=== PATIENT | female | born 1980 | race Caucasian/White ===

== ENCOUNTER → 2016-10-07 | Outpatient (CLI) | payer OTHER | END | disposition home or self-care (01) | LOC: LABWHC1 08:53 | PROVIDERS: ATTEND Obstetrics & Gynecology | DX: O00.10 Tubal pregnancy without intrauterine pregnancy (principal); Z3A.00 Weeks of gestation of pregnancy not specified | CPT/HCPCS: 36415; 84702 ==

== ENCOUNTER 2016-11-25 08:29 | Emergency (ER) | payer OTHER ==
[2016-11-25 08:36] VITALS: TEMP 98.2
--- NOTE | 2016-11-25 09:04 | ED ---
Skin/Abscess/FB HPI - General Chief complaint: Skin/Abscess/Foreign Body Stated complaint: Rash on legs Time Seen by Provider: 11/25/16 08:39 Source: patient, RN notes reviewed Mode of arrival: ambulatory - History of Present Illness Initial comments: 36-year-old male presents emergency Department with chief complaint of rash or lower extremity is. Patient states this started yesterday. Patient states it is painful and states her legs feel tight. Patient states her is red spotting noted to her legs. She states it is not itchy. Patient states that she's felt that she's had a low-grade temp at home though she is afebrile here. She states that she took some Tylenol Motrin yesterday. Patient states she did have 1 episode shortness breath yesterday but this time. Denies any cold symptoms. Patient states she is non-health problems that she knows of no history of autoimmune disorders. Patient states that she's had no new soaps or lotions or detergents. Patient states that she did have an ectopic with surgery 2 months ago. - Related Data Home Medications Medication Instructions Recorded Confirmed Albuterol Inhaler [Ventolin Hfa 2 puff INHALATION RT-Q6H PRN 11/25/16 11/25/16 Inhaler] Ibuprofen [Motrin] 400 mg PO Q6HR PRN 11/25/16 11/25/16 Previous Rx's Medication Instructions Recorded methylPREDNISolone [Medrol Dose 4 mg PO DIRECTED #1 pack 11/25/16 Pack] traMADol HCl [Ultram] 50 mg PO Q6H PRN #20 tab 11/25/16 Allergies Allergy/AdvReac Type Severity Reaction Status Date / Time diphenhydramine HCl Allergy Vomiting Verified 02/20/16 00:12 [From Benadryl] codeine AdvReac Itching Verified 11/25/16 09:10 Review of Systems ROS Statement: Those systems with pertinent positive or pertinent negative responses have been documented in the HPI. ROS Other: All systems not noted in ROS Statement are negative. 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 Absent: tenderness, meningismus, lymphadenopathy Respiratory exam: Present: normal lung sounds bilaterally. Absent: respiratory distress, wheezes, rales, rhonchi, stridor Cardiovascular Exam: Present: regular rate, normal rhythm, normal heart sounds. Absent: systolic murmur, diastolic murmur, rubs, gallop, clicks Extremities exam: Present: other (Lower extremities there are erythematous macular petechial type rash non-blanchable with reported tenderness to the skin with palpation no open lesions or sores there is no warmth to the area) Neurological exam: Present: alert Skin exam: Present: warm, dry Course Vital Signs 11/25/16 08:30 Temperature 98.2 F Pulse Rate 83 Respiratory 18 Rate Blood Pressure 149/80 O2 Sat by Pulse 99 Oximetry Medical Decision Making - Medical Decision Making 36-year-old female presented emergency department for rash her legs. Patient appears to have vasculitis. Patient be given steroids. Patient will follow-up with hadoop application developer or primary care physician. Return parameters were discussed. - Lab Data Result diagrams: 11/25/16 09:20 11/25/16 09:20 Lab Results 11/25/16 11/25/16 11/25/16 Range/Units 09:05 09:20 09:20 WBC 9.8 (3.8-10.6) k/uL RBC 4.72 (3.80-5.40) m/uL Hgb 14.4 (11.4-16.0) gm/dL Hct 42.1 (34.0-46.0) % MCV 89.2 (80.0-100.0) fL MCH 30.5 (25.0-35.0) pg MCHC 34.2 (31.0-37.0) g/dL RDW 12.5 (11.5-15.5) % Plt Count 307 (150-450) k/uL Neutrophils % 63 % Lymphocytes % 27 % Monocytes % 4 % Eosinophils % 5 % Basophils % 0 % Neutrophils # 6.1 (1.3-7.7) k/uL Lymphocytes # 2.6 (1.0-4.8) k/uL Monocytes # 0.4 (0-1.0) k/uL Eosinophils # 0.5 (0-0.7) k/uL Basophils # 0.0 (0-0.2) k/uL ESR 7 (0-20) mm/hr PT (9.0-12.0) sec INR (<1.1) APTT (22.0-30.0) sec Sodium 141 (137-145) mmol/L Potassium 4.0 (3.5-5.1) mmol/L Chloride 108 H (98-107) mmol/L Carbon Dioxide 24 (22-30) mmol/L Anion Gap 9 mmol/L BUN 11 (7-17) mg/dL Creatinine 0.54 (0.52-1.04) mg/dL Est GFR (MDRD) Af Amer >60 (>60 ml/min/1.73 sqM) Est GFR (MDRD) Non-Af >60 (>60 ml/min/1.73 sqM) Glucose 109 H (74-99) mg/dL Calcium 8.9 (8.4-10.2) mg/dL Total Bilirubin 0.4 (0.2-1.3) mg/dL AST 30 (14-36) U/L ALT 42 (9-52) U/L Alkaline Phosphatase 112 (38-126) U/L C-Reactive Protein 28.3 H (<10.0) mg/L Total Protein 6.9 (6.3-8.2) g/dL Albumin 4.0 (3.5-5.0) g/dL Urine Color Colorless Urine Appearance Clear (Clear) Urine pH 6.5 (5.0-8.0) Ur Specific [place] 1.003 (1.001-1.035) Urine Protein Negative (Negative) Urine Glucose (UA) Negative (Negative) Urine Ketones Negative (Negative) Urine Blood Negative (Negative) Urine Nitrite Negative (Negative) Urine Bilirubin Negative (Negative) Urine Urobilinogen <2.0 (<2.0) mg/dL Ur Leukocyte Esterase Negative (Negative) 11/25/16 Range/Units 09:20 WBC (3.8-10.6) k/uL RBC (3.80-5.40) m/uL Hgb (11.4-16.0) gm/dL Hct (34.0-46.0) % MCV (80.0-100.0) fL MCH (25.0-35.0) pg MCHC (31.0-37.0) g/dL RDW (11.5-15.5) % Plt Count (150-450) k/uL Neutrophils % % Lymphocytes % % Monocytes % % Eosinophils % % Basophils % % Neutrophils # (1.3-7.7) k/uL Lymphocytes # (1.0-4.8) k/uL Monocytes # (0-1.0) k/uL Eosinophils # (0-0.7) k/uL Basophils # (0-0.2) k/uL ESR (0-20) mm/hr PT 9.5 (9.0-12.0) sec INR 0.9 (<1.1) APTT 24.6 (22.0-30.0) sec Sodium (137-145) mmol/L Potassium (3.5-5.1) mmol/L Chloride (98-107) mmol/L Carbon Dioxide (22-30) mmol/L Anion Gap mmol/L BUN (7-17) mg/dL Creatinine (0.52-1.04) mg/dL Est GFR (MDRD) Af Amer (>60 ml/min/1.73 sqM) Est GFR (MDRD) Non-Af (>60 ml/min/1.73 sqM) Glucose (74-99) mg/dL Calcium (8.4-10.2) mg/dL Total Bilirubin (0.2-1.3) mg/dL AST (14-36) U/L ALT (9-52) U/L Alkaline Phosphatase (38-126) U/L C-Reactive Protein (<10.0) mg/L Total Protein (6.3-8.2) g/dL Albumin (3.5-5.0) g/dL Urine Color Urine Appearance (Clear) Urine pH (5.0-8.0) Ur Specific [place] (1.001-1.035) Urine Protein (Negative) Urine Glucose (UA) (Negative) Urine Ketones (Negative) Urine Blood (Negative) Urine Nitrite (Negative) Urine Bilirubin (Negative) Urine Urobilinogen (<2.0) mg/dL Ur Leukocyte Esterase (Negative) Disposition Clinical Impression: Vasculitis Disposition: HOME SELF-CARE Condition: Stable Instructions: Acute Rash (ED) Additional Instructions: Please return to the Emergency Department if symptoms worsen or any other concerns. Prescriptions: methylPREDNISolone [Medrol Dose Pack] 4 mg PO DIRECTED #1 pack traMADol HCl [Ultram] 50 mg PO Q6H PRN #20 tab PRN Reason: Pain Referrals: None,Stated [Primary Care Provider] - 1-2 days Shey Lizama MD [STAFF PHYSICIAN] - 1-2 days Time of Disposition: 10:50
[2016-11-25 09:26] LABS: Appearance,Urine Clear (Clear); Bilirubin,Urine Negative (Negative); Glucose,Urine (UA) Negative (Negative); Ketones,Urine Negative (Negative); Leukocyte Esterase,Urine Negative (Negative); Nitrite,Urine Negative (Negative); PH, Urine 6.5 (5.0-8.0); Protein,Urine Negative (Negative); Specific Gravity,Urine 1.003 (1.001-1.035); UA Billing (MACRO vs. MICRO) CHEM; Urobilinogen,Urine <2.0 mg/dL (<2.0)
[2016-11-25 09:33] LABS: Basophils % (A) 0 %; CH 30.5; CHCM 34.4; Eosinophils # (A) 0.5 k/uL (0-0.7); Eosinophils % (A) 5 %; HCT 42.1 % (34.0-46.0); HDW 2.76; HGB 14.4 gm/dL (11.4-16.0); Luc # (Auto) 0.16; Luc % (Auto) 2; Lymphocytes # (A) 2.6 k/uL (1.0-4.8); Lymphocytes % (A) 27 %; MCH 30.5 pg (25.0-35.0); MCHC 34.2 g/dL (31.0-37.0); MCV 89.2 fL (80.0-100.0); Mean Platelet Volume 6.5; Monocytes # (A) 0.4 k/uL (0-1.0); Monocytes % (A) 4 %; Neutrophils # (A) 6.1 k/uL (1.3-7.7); Neutrophils % (A) 63 %; RBC 4.72 m/uL (3.80-5.40); RDW 12.5 % (11.5-15.5); WBC 9.8 k/uL (3.8-10.6); WBC (Perox) 10.07
[2016-11-25 09:41] LABS: ALT 42 U/L (9-52); AST 30 U/L (14-36); Alkaline Phosphatase 112 U/L (38-126); Anion Gap 9 mmol/L; Blood Urea Nitrogen 11 mg/dL (7-17); Calcium 8.9 mg/dL (8.4-10.2); Carbon Dioxide 24 mmol/L (22-30); Chloride 108 mmol/L (98-107); Glucose 109 mg/dL (74-99); Non-African American GFR(MDRD) >60 (>60 ml/min/1.73 sqM); Sodium 141 mmol/L (137-145); Total Bilirubin 0.4 mg/dL (0.2-1.3); Total Protein 6.9 g/dL (6.3-8.2)
[2016-11-25 09:45] LABS: INR 0.9 (<1.1); Partial Thromboplastin Time 24.6 sec (22.0-30.0); Prothrombin Time 9.5 sec (9.0-12.0)
[2016-11-25 09:55] LABS: C Reactive Protein 28.3 mg/L (<10.0)
[2016-11-25 10:18] LABS: Erythrocyte Sedimentation Rate 7 mm/hr (0-20)
[2016-11-25] MEDS ORDERED: HYDROcodone/APAP 5-325MG 1 EACH TAB PO STA (10:53)
[2016-11-25 11:24] VITALS: BP 156/70; PULSE 70; RESP 16
== END 2016-11-25 11:24 | disposition home or self-care (01) ==
LOC: EC 08:29
DX: L95.9 Vasculitis limited to the skin, unspecified (principal); Z88.5 Allergy status to narcotic agent; Z88.8 Allergy status to other drugs, medicaments and biological substances
CPT/HCPCS: 36415; 80053; 81003; 85025; 85610; 85652; 85730; 86140; 99283

== ENCOUNTER 2017-01-01 11:08 | Emergency (ER) | payer OTHER ==
[2017-01-01] MEDS ORDERED: IPRATROPIUM-ALBUTEROL 3 ML NEB INHALATION STA (12:59)
--- NOTE | 2017-01-01 13:02 | ED ---
General Adult HPI - General Chief complaint: Recheck/Abnormal Lab/Rx Stated complaint: body swelling Time Seen by Provider: 01/01/17 12:53 Source: patient, RN notes reviewed Mode of arrival: ambulatory Limitations: no limitations - History of Present Illness Initial comments: 36-year-old female presents emergency room for evaluation. Patient states she was diagnosed with vasculitis about a month ago. Patient states that she had a rash on bilateral legs with pain. Patient states over the past 4 days and having pain all over. Patient also states that having on and off chest pain shortness of breath. Patient does admit having history of asthma. Patient states the chest pain comes in waves. Patient denies abdominal pain. Patient denies nausea or vomiting. Patient denies taking any medications. Patient states she's had on-and-off fevers and chills throughout the past week. Patient states last dose of ibuprofen was at 2:00 in the morning. Patient denies headache or dizziness. Patient denies paresthesias. Patient denies neck pain or back pain. - Related Data Home Medications Medication Instructions Recorded Confirmed Albuterol Inhaler [Ventolin Hfa 2 puff INHALATION RT-Q6H PRN 11/25/16 01/01/17 Inhaler] Ibuprofen [Motrin] 800 mg PO Q6HR PRN 11/25/16 01/01/17 Previous Rx's Medication Instructions Recorded predniSONE 40 mg PO DAILY #5 tab 01/01/17 Allergies Allergy/AdvReac Type Severity Reaction Status Date / Time diphenhydramine HCl Allergy Vomiting Verified 01/01/17 12:04 [From Benadryl] codeine AdvReac Itching Verified 01/01/17 12:04 Review of Systems ROS Statement: Those systems with pertinent positive or pertinent negative responses have been documented in the HPI. ROS Other: All systems not noted in ROS Statement are negative. 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 Limitations: no limitations General appearance: alert, in no apparent distress Head exam: Present: atraumatic, normocephalic, normal inspection Eye exam: Present: normal appearance ENT exam: Present: normal exam Neck exam: Present: normal inspection Respiratory exam: Present: normal lung sounds bilaterally. Absent: respiratory distress Cardiovascular Exam: Present: regular rate, normal rhythm, normal heart sounds GI/Abdominal exam: Present: soft, normal bowel sounds. Absent: distended, tenderness, guarding, rebound, rigid Extremities exam: Present: normal inspection Back exam: Present: normal inspection Neurological exam: Present: alert, oriented X3, CN II-XII intact, normal gait Psychiatric exam: Present: normal affect, normal mood Skin exam: Present: warm, dry, intact, normal color. Absent: rash Course Vital Signs 01/01/17 01/01/17 01/01/17 11:09 13:24 13:37 Temperature 98.2 F Pulse Rate 87 75 84 Respiratory 20 Rate Blood Pressure 160/78 O2 Sat by Pulse 98 Oximetry 01/01/17 01/01/17 14:29 15:32 Temperature 97.5 F L Pulse Rate 94 79 Respiratory 18 16 Rate Blood Pressure 145/79 144/73 O2 Sat by Pulse 98 98 Oximetry EKG Findings - EKG Comments: EKG Findings:: Normal sinus rhythm, ventricular rate 72 bpm, WV interval 152 ms , QRS duration 96 ms, QT/QTc 428/468 ms Medical Decision Making - Medical Decision Making Patient is a 36-year-old female since emergency room for evaluation of chest pain and all over body aches. Labs show normal concerning findings. Cardiac enzymes showed no significant findings. Chest x-ray negative for any acute findings. Patient will be placed on prednisone for possible asthma exacerbation. Advised patient to follow-up for further evaluation with her primary care provider. Patient states she understands everything that was discussed with her. Return parameters discussed. Case discussed with Dr. Moss. - Lab Data Result diagrams: 01/01/17 13:07 01/01/17 13:07 Lab Results 01/01/17 01/01/17 01/01/17 Range/Units 13:07 13:07 13:07 WBC 13.3 H (3.8-10.6) k/uL RBC 4.51 (3.80-5.40) m/uL Hgb 14.0 (11.4-16.0) gm/dL Hct 40.2 (34.0-46.0) % MCV 89.2 (80.0-100.0) fL MCH 31.0 (25.0-35.0) pg MCHC 34.7 (31.0-37.0) g/dL RDW 12.8 (11.5-15.5) % Plt Count 294 (150-450) k/uL Neutrophils % 65 % Lymphocytes % 25 % Monocytes % 6 % Eosinophils % 2 % Basophils % 0 % Neutrophils # 8.7 H (1.3-7.7) k/uL Lymphocytes # 3.3 (1.0-4.8) k/uL Monocytes # 0.7 (0-1.0) k/uL Eosinophils # 0.3 (0-0.7) k/uL Basophils # 0.0 (0-0.2) k/uL PT (9.0-12.0) sec INR (<1.1) APTT (22.0-30.0) sec Sodium 144 (137-145) mmol/L Potassium 3.9 (3.5-5.1) mmol/L Chloride 108 H (98-107) mmol/L Carbon Dioxide 25 (22-30) mmol/L Anion Gap 11 mmol/L BUN 7 (7-17) mg/dL Creatinine 0.50 L (0.52-1.04) mg/dL Est GFR (MDRD) Af Amer >60 (>60 ml/min/1.73 sqM) Est GFR (MDRD) Non-Af >60 (>60 ml/min/1.73 sqM) Glucose 98 (74-99) mg/dL Calcium 9.1 (8.4-10.2) mg/dL Magnesium 2.2 (1.6-2.3) mg/dL Total Bilirubin 0.3 (0.2-1.3) mg/dL AST 19 (14-36) U/L ALT 33 (9-52) U/L Alkaline Phosphatase 93 (38-126) U/L Total Creatine Kinase 57 (30-135) U/L CK-MB (CK-2) 0.9 (0.0-2.4) ng/mL CK-MB (CK-2) Rel Index 1.6 Troponin I <0.012 (0.000-0.034) ng/mL Total Protein 7.2 (6.3-8.2) g/dL Albumin 4.4 (3.5-5.0) g/dL 01/01/17 Range/Units 13:07 WBC (3.8-10.6) k/uL RBC (3.80-5.40) m/uL Hgb (11.4-16.0) gm/dL Hct (34.0-46.0) % MCV (80.0-100.0) fL MCH (25.0-35.0) pg MCHC (31.0-37.0) g/dL RDW (11.5-15.5) % Plt Count (150-450) k/uL Neutrophils % % Lymphocytes % % Monocytes % % Eosinophils % % Basophils % % Neutrophils # (1.3-7.7) k/uL Lymphocytes # (1.0-4.8) k/uL Monocytes # (0-1.0) k/uL Eosinophils # (0-0.7) k/uL Basophils # (0-0.2) k/uL PT 10.2 (9.0-12.0) sec INR 1.0 (<1.1) APTT 25.9 (22.0-30.0) sec Sodium (137-145) mmol/L Potassium (3.5-5.1) mmol/L Chloride (98-107) mmol/L Carbon Dioxide (22-30) mmol/L Anion Gap mmol/L BUN (7-17) mg/dL Creatinine (0.52-1.04) mg/dL Est GFR (MDRD) Af Amer (>60 ml/min/1.73 sqM) Est GFR (MDRD) Non-Af (>60 ml/min/1.73 sqM) Glucose (74-99) mg/dL Calcium (8.4-10.2) mg/dL Magnesium (1.6-2.3) mg/dL Total Bilirubin (0.2-1.3) mg/dL AST (14-36) U/L ALT (9-52) U/L Alkaline Phosphatase (38-126) U/L Total Creatine Kinase (30-135) U/L CK-MB (CK-2) (0.0-2.4) ng/mL CK-MB (CK-2) Rel Index Troponin I (0.000-0.034) ng/mL Total Protein (6.3-8.2) g/dL Albumin (3.5-5.0) g/dL Disposition Clinical Impression: Asthma exacerbation Disposition: HOME SELF-CARE Condition: Good Instructions: Asthma (ED) Additional Instructions: Take medications as directed. Take Tylenol or ibuprofen as needed for pain. Please follow-up with primary care provider for further evaluation. If any new symptom arises or symptoms worsen, return to ER as soon as possible. Prescriptions: predniSONE 40 mg PO DAILY #5 tab Referrals: None,Stated [Primary Care Provider] - 1-2 days Time of Disposition: 15:27
[2017-01-01 13:25] LABS: Basophils % (A) 0 %; CH 30.1; CHCM 33.9; Eosinophils # (A) 0.3 k/uL (0-0.7); Eosinophils % (A) 2 %; HCT 40.2 % (34.0-46.0); HDW 2.57; Luc # (Auto) 0.25; Luc % (Auto) 2; Lymphocytes # (A) 3.3 k/uL (1.0-4.8); Lymphocytes % (A) 25 %; MCHC 34.7 g/dL (31.0-37.0); MCV 89.2 fL (80.0-100.0); Mean Platelet Volume 6.7; Monocytes # (A) 0.7 k/uL (0-1.0); Monocytes % (A) 6 %; Neutrophils # (A) 8.7 k/uL (1.3-7.7); Neutrophils % (A) 65 %; RBC 4.51 m/uL (3.80-5.40); RDW 12.8 % (11.5-15.5); WBC 13.3 k/uL (3.8-10.6); WBC (Perox) 12.99
[2017-01-01 13:30] LABS: Partial Thromboplastin Time 25.9 sec (22.0-30.0); Prothrombin Time 10.2 sec (9.0-12.0)
[2017-01-01 13:31] LABS: ALT 33 U/L (9-52); AST 19 U/L (14-36); Alkaline Phosphatase 93 U/L (38-126); Anion Gap 11 mmol/L; Blood Urea Nitrogen 7 mg/dL (7-17); Calcium 9.1 mg/dL (8.4-10.2); Carbon Dioxide 25 mmol/L (22-30); Chloride 108 mmol/L (98-107); Glucose 98 mg/dL (74-99); Magnesium 2.2 mg/dL (1.6-2.3); Non-African American GFR(MDRD) >60 (>60 ml/min/1.73 sqM); Potassium 3.9 mmol/L (3.5-5.1); Sodium 144 mmol/L (137-145); Total Bilirubin 0.3 mg/dL (0.2-1.3); Total Protein 7.2 g/dL (6.3-8.2)
[2017-01-01 13:40] LABS: Creatine Kinase 57 U/L (30-135)
[2017-01-01 13:53] LABS: Creatine Kinase MB 0.9 ng/mL (0.0-2.4); Troponin I <0.012 ng/mL (0.000-0.034)
[2017-01-01] MEDS ORDERED: IBUPROFEN 600 MG TAB PO STA (14:15)
--- NOTE | 2017-01-01 14:28 | XR ---
EXAMINATION TYPE: XR chest 2V DATE OF EXAM: 01/01/2017 2:24 PM COMPARISON: 08/15/2014 TECHNIQUE: PA and lateral views submitted. HISTORY: Chest pain FINDINGS: The lungs are clear and there is no pneumothorax, pleural effusion, or focal pneumonia. The heart i s prominent. No overt failure or pneumothorax. No pleural effusion. Hypertrophic change of the spine. IMPRESSION: 1. No acute process.
[2017-01-01 15:32] VITALS: BP 144/73; PULSE 79; RESP 16; TEMP 97.5
== END 2017-01-01 15:46 | disposition home or self-care (01) ==
LOC: EC 11:08
DX: J45.901 Unspecified asthma with (acute) exacerbation (principal); J42 Unspecified chronic bronchitis; R07.9 Chest pain, unspecified; Z88.5 Allergy status to narcotic agent; Z88.8 Allergy status to other drugs, medicaments and biological substances
CPT/HCPCS: 36415; 71020; 80053; 82550; 82553; 83735; 84484; 85025; 85610; 85730; 93005; 94640; 99284

== ENCOUNTER 2017-05-23 09:25 | Inpatient (IN) | payer OTHER ==
[2017-05-23] MEDS ORDERED: ONDANSETRON 4 MG/2 ML VIAL IVP STA (09:54)
[2017-05-23] MEDS ORDERED: SODIUM CHLORIDE 0.9% 1,000 ML IV STA (09:54)
[2017-05-23] MEDS ORDERED: HYDROmorphone 1 MG/ML 1 ML SYRINGE IVP STA ×2 (10:02→12:09)
--- NOTE | 2017-05-23 10:27 | ED ---
General Adult HPI <Narciso Lawson - Last Filed: 05/23/17 12:40> - General Source: patient, RN notes reviewed Mode of arrival: ambulatory Limitations: no limitations <Blas Geiger - Last Filed: 05/23/17 12:49> - General Chief complaint: Abdominal Pain Stated complaint: POSS KIDNEY INFECTION, FEMALE Time Seen by Provider: 05/23/17 09:43 - History of Present Illness Initial comments: Patient 37-year-old female who presents emergency room today with a chief complaint of right-sided flank pain that began yesterday but increased this morning approximately 5 AM. Patient describes a sharp type pain started in the right side radiating around to the right front. Patient states about possible UTI. Patient does admit to symptoms of nausea vomiting of service morning. Currently rates her pain a 03/19. Does admit that she took ibuprofen this morning. Patient denies any recent fever, chills, shortness of breath, chest pain, numbness or tingling, dysuria or hematuria, constipation or diarrhea, headaches or visual changes, or any other complaints. (Blas Geiger) - Related Data Home Medications Medication Instructions Recorded Confirmed Ibuprofen [Motrin] 400 mg PO Q6HR PRN 05/23/17 05/23/17 Allergies Allergy/AdvReac Type Severity Reaction Status Date / Time codeine AdvReac Itching Verified 05/23/17 12:45 diphenhydramine HCl AdvReac Hallucinati Verified 05/23/17 12:45 [From Benadryl] ons Review of Systems ROS Other: All systems not noted in ROS Statement are negative. <Narciso Lawson - Last Filed: 05/23/17 12:40> ROS Other: All systems not noted in ROS Statement are negative. <Blas Geiger - Last Filed: 05/23/17 12:49> ROS Statement: Those systems with pertinent positive or pertinent negative responses have been documented in the HPI. 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, chronic bronchitis, vasculitis History of Any Multi-Drug Resistant Organisms: None Reported Past Surgical History: Cholecystectomy, Ear Surgery, Tubal Ligation Additional Past Surgical History / Comment(s): carpel tunnel, ectopic removal 09/28/16 Past Psychological History: Anxiety, Depression Smoking Status: Never smoker Past Alcohol Use History: Rare Past Drug Use History: None Reported <Blas Geiger - Last Filed: 05/23/17 12:49> General Exam <RennyNarciso - Last Filed: 05/23/17 12:40> Limitations: no limitations <Blas Geiger - Last Filed: 05/23/17 12:49> - General Exam Comments Initial Comments: General: The patient is awake and alert, in no distress, and does not appear acutely ill. Eye: Pupils are equal, round and reactive to light, extra-ocular movements are intact. No nystagmus. There is normal conjunctiva bilaterally. No signs of icterus. Ears, nose, mouth and throat: There are moist mucous membranes and no oral lesions. Neck: The neck is supple, there is no tenderness or JVD. Cardiovascular: There is a regular rate and rhythm. No murmur, rub or gallop is appreciated. Respiratory: Lungs are clear to auscultation, respirations are non-labored, breath sounds are equal. No wheezes, stridor, rales, or rhonchi. Gastrointestinal: Normal appearance. Normal bowel sounds. Abdomen soft on palpation or patient does have mild tenderness right CVA and mild tenderness in the right flank. No rebound tenderness. No guarding. Musculoskeletal: Normal ROM, no tenderness. Strength 5/5. Sensation intact. Pulses equal bilaterally 2+. Neurological: A&O x 3. CN II-XII intact, There are no obvious motor or sensory deficits. Coordination appears grossly intact. Speech is normal. Skin: Skin is warm and dry and no rashes or lesions are noted. Psychiatric: Cooperative, appropriate mood & affect, normal judgment. (Blas Geiger) Medical Decision Making - Lab Data Result diagrams: 05/23/17 10:15 05/23/17 11:31 <Narciso Lawson - Last Filed: 05/23/17 12:40> - Lab Data Result diagrams: 05/23/17 10:15 05/23/17 11:31 <Blas Geiger - Last Filed: 05/23/17 12:49> - Medical Decision Making Medical decision making; I evaluated the patient at bedside. The patient reports a day or so ago she started having discomfort to her right lower back. This morning at 5 AM she developed nausea vomiting fever. Temperature is 101 at home. The patient in the emergency room. Lab tests here show urine with over 180 whites and reds, leuk esterase positive, CBC and clumps. White count elevated at 15,000. BUN/creatinine within normal limits. The patient received 2 g of Rocephin. I discussed the case with Dr. Mendiola, on-call urologist. He wants the patient admitted to medicine he'll consult patient has possible 3 mm stone distal right ureter with some stranding locally. I read the CAT scan report to the urologist. I also discussed the case with on-call hospitalist Dr. Rivera. Patient be admitted to his service. Dr. Lawson (Narciso Lawson) - Lab Data Lab Results 05/23/17 05/23/17 05/23/17 Range/Units 10:15 10:15 10:15 WBC 15.6 H (3.8-10.6) k/uL RBC 4.49 (3.80-5.40) m/uL Hgb 13.7 (11.4-16.0) gm/dL Hct 41.4 (34.0-46.0) % MCV 92.2 (80.0-100.0) fL MCH 30.6 (25.0-35.0) pg MCHC 33.2 (31.0-37.0) g/dL RDW 13.5 (11.5-15.5) % Plt Count 283 (150-450) k/uL Neutrophils % 75 % Lymphocytes % 16 % Monocytes % 5 % Eosinophils % 2 % Basophils % 0 % Neutrophils # 11.7 H (1.3-7.7) k/uL Lymphocytes # 2.5 (1.0-4.8) k/uL Monocytes # 0.8 (0-1.0) k/uL Eosinophils # 0.4 (0-0.7) k/uL Basophils # 0.0 (0-0.2) k/uL Sodium (137-145) mmol/L Potassium (3.5-5.1) mmol/L Chloride (98-107) mmol/L Carbon Dioxide (22-30) mmol/L Anion Gap mmol/L BUN (7-17) mg/dL Creatinine (0.52-1.04) mg/dL Est GFR (MDRD) Af Amer (>60 ml/min/1.73 sqM) Est GFR (MDRD) Non-Af (>60 ml/min/1.73 sqM) Glucose (74-99) mg/dL Calcium (8.4-10.2) mg/dL Total Bilirubin (0.2-1.3) mg/dL AST (14-36) U/L ALT (9-52) U/L Alkaline Phosphatase (38-126) U/L Total Protein (6.3-8.2) g/dL Albumin (3.5-5.0) g/dL Amylase (30-110) U/L Lipase (23-300) U/L Urine Color Yellow Urine Appearance Cloudy H (Clear) Urine pH 7.5 (5.0-8.0) Ur Specific [place] 1.014 (1.001-1.035) Urine Protein 2+ H (Negative) Urine Glucose (UA) Negative (Negative) Urine Ketones Negative (Negative) Urine Blood Large H (Negative) Urine Nitrite Negative (Negative) Urine Bilirubin Negative (Negative) Urine Urobilinogen <2.0 (<2.0) mg/dL Ur Leukocyte Esterase Large H (Negative) Urine RBC >182 H (0-5) /hpf Urine WBC >182 H (0-5) /hpf Urine WBC Clumps Few H (None) /hpf Ur Squamous Epith Cells <1 (0-4) /hpf Urine Bacteria Rare H (None) /hpf Urine Yeast (Budding) Few H (None) /hpf Urine HCG, Qual Not Detected (Not Detectd) 05/23/17 Range/Units 11:31 WBC (3.8-10.6) k/uL RBC (3.80-5.40) m/uL Hgb (11.4-16.0) gm/dL Hct (34.0-46.0) % MCV (80.0-100.0) fL MCH (25.0-35.0) pg MCHC (31.0-37.0) g/dL RDW (11.5-15.5) % Plt Count (150-450) k/uL Neutrophils % % Lymphocytes % % Monocytes % % Eosinophils % % Basophils % % Neutrophils # (1.3-7.7) k/uL Lymphocytes # (1.0-4.8) k/uL Monocytes # (0-1.0) k/uL Eosinophils # (0-0.7) k/uL Basophils # (0-0.2) k/uL Sodium 140 (137-145) mmol/L Potassium 4.1 (3.5-5.1) mmol/L Chloride 107 (98-107) mmol/L Carbon Dioxide 25 (22-30) mmol/L Anion Gap 8 mmol/L BUN 7 (7-17) mg/dL Creatinine 0.52 (0.52-1.04) mg/dL Est GFR (MDRD) Af Amer >60 (>60 ml/min/1.73 sqM) Est GFR (MDRD) Non-Af >60 (>60 ml/min/1.73 sqM) Glucose 91 (74-99) mg/dL Calcium 8.6 (8.4-10.2) mg/dL Total Bilirubin 0.3 (0.2-1.3) mg/dL AST 60 H (14-36) U/L ALT 79 H (9-52) U/L Alkaline Phosphatase 93 (38-126) U/L Total Protein 6.4 (6.3-8.2) g/dL Albumin 3.7 (3.5-5.0) g/dL Amylase <30 L (30-110) U/L Lipase 115 (23-300) U/L Urine Color Urine Appearance (Clear) Urine pH (5.0-8.0) Ur Specific [place] (1.001-1.035) Urine Protein (Negative) Urine Glucose (UA) (Negative) Urine Ketones (Negative) Urine Blood (Negative) Urine Nitrite (Negative) Urine Bilirubin (Negative) Urine Urobilinogen (<2.0) mg/dL Ur Leukocyte Esterase (Negative) Urine RBC (0-5) /hpf Urine WBC (0-5) /hpf Urine WBC Clumps (None) /hpf Ur Squamous Epith Cells (0-4) /hpf Urine Bacteria (None) /hpf Urine Yeast (Budding) (None) /hpf Urine HCG, Qual (Not Detectd) Disposition <Narciso Lawson - Last Filed: 05/23/17 12:40> Time of Disposition: 12:49 <Blas Geiger - Last Filed: 05/23/17 12:49> Clinical Impression: Kidney stone, Pyelonephritis Disposition: ADMITTED IP TO THIS [facility] Condition: Stable Referrals: None,Stated [Primary Care Provider] - 1-2 days
[2017-05-23 10:51] LABS: Basophils % (A) 0 %; CH 31.7; CHCM 34.6; Eosinophils # (A) 0.4 k/uL (0-0.7); Eosinophils % (A) 2 %; HCT 41.4 % (34.0-46.0); HDW 2.63; HGB 13.7 gm/dL (11.4-16.0); Luc # (Auto) 0.19; Luc % (Auto) 1; Lymphocytes # (A) 2.5 k/uL (1.0-4.8); Lymphocytes % (A) 16 %; MCH 30.6 pg (25.0-35.0); MCHC 33.2 g/dL (31.0-37.0); MCV 92.2 fL (80.0-100.0); Mean Platelet Volume 7.4; Monocytes # (A) 0.8 k/uL (0-1.0); Monocytes % (A) 5 %; Neutrophils # (A) 11.7 k/uL (1.3-7.7); Neutrophils % (A) 75 %; RBC 4.49 m/uL (3.80-5.40); RDW 13.5 % (11.5-15.5); WBC 15.6 k/uL (3.8-10.6)
[2017-05-23 10:55] LABS: Appearance,Urine Cloudy (Clear); Bacteria,Urine Rare /hpf; Bilirubin,Urine Negative (Negative); Glucose,Urine (UA) Negative (Negative); Ketones,Urine Negative (Negative); Leukocyte Esterase,Urine Large (Negative); Nitrite,Urine Negative (Negative); PH, Urine 7.5 (5.0-8.0); Particle Count 2074; Protein,Urine 2+ (Negative); RBC,Urine >182 /hpf (0-5); Specific Gravity,Urine 1.014 (1.001-1.035); Squamous Epithelial Cell,Urine <1 /hpf (0-4); UA Billing (MACRO vs. MICRO) MICRO; Urobilinogen,Urine <2.0 mg/dL (<2.0); WBC,Urine >182 /hpf (0-5)
[2017-05-23] MEDS ORDERED: cefTRIAXone 2,000 MG in SODIUM CHLORIDE 0.9% 100 ML IVPB STA (11:05)
--- NOTE | 2017-05-23 11:40 | CT ---
EXAMINATION TYPE: CT abdomen pelvis wo con DATE OF EXAM: 05/23/2017 COMPARISON: NONE HISTORY: Right sided back pain CT DLP: 995.6 mGycm Automated exposure control for dose reduction was used. FINDINGS: Visualized portions of the lungs are clear. There is no pleural or pericardial fluid heart size is upper limits of normal. There is a small hiatal hernia. Within the abdomen, the gallbladder is been removed. The liver is prominent measuring 21 cm. 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 The spleen is normal. Both adrenal glands are normal. Both kidneys appear morphologically normal. There is no evidence of hydronephrosis. There is mild stranding along the right ureter which is mildly enlarged. There is a 3 mm calcificatio n adjacent to the cervix on the right. I'm unable to exclude a distal right ureteric calculus. Limited views of the pancreas are unremarkable. There is no significant retroperitoneal, iliac or inguinal adenopathy. The bladder is unremarkable. There is a 6 cm left ovarian mass, likely representing a cyst. There is a 2 cm left sided fibroid. There is no significant diverticular change and there is no radiographic evidence of diverticulitis. The appendix is normal. No free fluid and no free air is seen. There is a small umbilical hernia containing fat only with a 1.4 cm mouth. No osseous lesion is seen. IMPRESSION: 1. I CANNOT EXCLUDE A 3 MM DISTAL RIGHT URETERIC CALCULUS. 2. HEPATOMEGALY. 3. PROBABLE LEFT OVARIAN CYST. THIS COULD BE CONFIRMED WITH ULTRASOUND. 4. FIBROID UTERUS. 5. NORMAL APPENDIX. 6. SMALL HIATAL HERNIA. 7. SMALL UMBILICAL HERNIA CONTAINING FAT ONLY.
[2017-05-23] MEDS ORDERED: KETOROLAC 30 MG/ML 1 ML VIAL IVP STA (12:09)
[2017-05-23 12:17] LABS: ALT 79 U/L (9-52); AST 60 U/L (14-36); Alkaline Phosphatase 93 U/L (38-126); Amylase <30 U/L (30-110); Anion Gap 8 mmol/L; Blood Urea Nitrogen 7 mg/dL (7-17); Calcium 8.6 mg/dL (8.4-10.2); Carbon Dioxide 25 mmol/L (22-30); Chloride 107 mmol/L (98-107); Glucose 91 mg/dL (74-99); Non-African American GFR(MDRD) >60 (>60 ml/min/1.73 sqM); Potassium 4.1 mmol/L (3.5-5.1); Sodium 140 mmol/L (137-145); Total Bilirubin 0.3 mg/dL (0.2-1.3); Total Protein 6.4 g/dL (6.3-8.2)
[2017-05-23] MEDS ORDERED: NALOXONE 0.4 MG/ML 1 ML VIAL IV PRN ×2 (12:49→13:57)
[2017-05-23] MEDS ORDERED: ACETAMINOPHEN TAB 325 MG TAB PO PRN (13:57)
--- NOTE | 2017-05-23 14:08 | P.HPIM ---
History of Present Illness H&P Date: 05/23/17 Chief Complaint: Right flank pain 37-year-old female who presents emergency room today with a chief complaint of right-sided flank pain that began yesterday but increased in severity this morning approximately 5 AM. Patient describes a sharp achy type 10/10 pain started in the right side radiating around to the right groin area. Patient does admit to several episodes symptoms of nausea vomiting of service morning. Currently rates her pain a 8/10. Does admit that she took ibuprofen this morning. Patient reports recent fever temperature 102.4 and chills and urinary symptoms of incomplete voiding dysuria or increased frequency that began approximately 2 days ago, she reports increasing her intake of cranberry juice at this time as she ought she was having another UTI. She reports a history of UTIs last occurring over a year ago, she denies shortness of breath, chest pain, numbness or tingling, constipation or diarrhea, headaches or visual changes, or any other complaints Review of Systems Constitutional: Patient reports no fever, no chills, no weight changes, no change in appetite Eyes: Patient reports no double vision, no visual changes ENT: Patient reports no rhinorrhea, no post nasal drip, no sore throat Cardiovascular: Patient reports no chest, no edema, no palpitations, no syncope , no orthopnea, no paroxysmal nocturnal dyspnea. Respiratory: Patient reports no dyspnea, no cough, no wheeze Gastrointestinal: Patient reports no nausea, no vomiting, no constipation, no diarrhea Genitourinary: Patient reports no dysuria, no urinary frequency, no hematuria. Musculoskeletal: Patient reports no unusual joint pain, no joint swelling or weakness. Patient reports no muscular pain. Psychiatric: Patient reports no changes in mood, no sleeping problems. Patient reports no changes in memory. Endocrine: Patient reports no thirst, no polyuria, no cold intolerance, no heat intolerance. Neurological: Patient reports no unusual paresthesias, no seizures, no paresis , no paralysis, no facila droop, no headache. Heme/Lymphatic: Patient reports no easy bruising, no bleeding tendency, no lymphadenopathy. Allergic/ Immunologic: Patient reports no recent allergic reactions or immunologic history. Skin: Patient reports no rashes or unusual lesions. 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, chronic bronchitis, vasculitis History of Any Multi-Drug Resistant Organisms: None Reported Past Surgical History: Cholecystectomy, Ear Surgery, Tubal Ligation Additional Past Surgical History / Comment(s): carpel tunnel, ectopic removal 09/28/16 Past Psychological History: Anxiety, Depression Smoking Status: Never smoker Past Alcohol Use History: Rare Past Drug Use History: None Reported Medications and Allergies Home Medications Medication Instructions Recorded Confirmed Type Ibuprofen [Motrin] 400 mg PO Q6HR PRN 05/23/17 05/23/17 History Allergies Allergy/AdvReac Type Severity Reaction Status Date / Time codeine AdvReac Itching Verified 05/23/17 12:45 diphenhydramine HCl AdvReac Hallucinati Verified 05/23/17 12:45 [From Benadryl] ons Physical Exam Vitals: Vital Signs Temp Pulse Resp BP Pulse Ox 05/23/17 12:22 81 16 155/91 98 05/23/17 09:33 98.7 F 88 20 139/75 98 Intake and Output 05/22/17 05/23/17 05/23/17 22:59 06:59 14:59 Other: Weight 86.183 kg Patient Weight 05/24/17 06:59 Weight 86.183 kg Constitutional: No acute distress, conversant, pleasant Eyes: Anicteric sclerae, moist conjunctiva, no lid-lag, PERRLA ENMT: NC/AT,Oropharynx clear, no erythema, exudates Neck:Supple, FROM, no masses, or JVD, No carotid bruits; No thyromegaly Lungs: Clear to auscultation, Clear to percussion, Normal respiratory effort, no accessory muscle use Cardiovascular: Heart regular in rate and rhythm, No murmurs, gallops, or rubs no peripheral edema Abdominal: Soft Nontender, nom distended, no guarding, no rebound or rigidity, Normoactive bowel sounds No hepatomegaly, No splenomegaly, No palpable mass No abdominal wall hernia noted Skin: Normal temperature, tone, texture, turgor, No induration No subcutaneous nodules, No rash, lesions, No ulcers Extremities:No digital cyanosis No clubbing, Pedal pulses intact and symmetrical Radial pulses intact and symmetrical Normal gait and station, No calf tenderness Psychiatric: Alert and oriented to person, place and time, Appropriate affect Intact judgement Neuro: Muscles Strength 5/5 in all 4 extremities, Sensation to light touch grossly present throughout, Cranial nerves II-XII grossly intact. No focal sensory deficits Results CBC & Chem 7: 05/23/17 10:15 05/23/17 11:31 Labs: Abnormal Lab Results - Last 24 Hours (Table) 05/23/17 05/23/17 05/23/17 Range/Units 10:15 10:15 11:31 WBC 15.6 H (3.8-10.6) k/uL Neutrophils # 11.7 H (1.3-7.7) k/uL AST 60 H (14-36) U/L ALT 79 H (9-52) U/L Amylase <30 L (30-110) U/L Urine Appearance Cloudy H (Clear) Urine Protein 2+ H (Negative) Urine Blood Large H (Negative) Ur Leukocyte Esterase Large H (Negative) Urine RBC >182 H (0-5) /hpf Urine WBC >182 H (0-5) /hpf Urine WBC Clumps Few H (None) /hpf Urine Bacteria Rare H (None) /hpf Urine Yeast (Budding) Few H (None) /hpf Assessment and Plan (1) Sepsis Status: Acute (2) Pyelonephritis Status: Acute (3) Kidney stone Status: Acute (4) Intractable nausea and vomiting Status: Acute Plan: The patient is a 37-year-old female that is admitted to the medical floor anticipated greater than 2 midnight stay with sepsis secondary to acute pyelonephritis with intractable nausea and vomiting we'll send for blood urine cultures, she started on empiric IV antibiotics with Rocephin, patient has CT evidence of a nonobstructive kidney stone. We'll treat supportively with the Zofran and Tylenol for nausea and fevers respectively, urologist been consulted for further recommendations. Patient is a high risk of being severely septic if treatment is attempted in the outpatient setting as she is unable to tolerate any by mouth antibiotics or fluids. We will continue to follow her clinical course
[2017-05-23] MEDS: PANTOPRAZOLE 40 MG/10 ML VIAL IV SCH (14:45)
[2017-05-23] MEDS: ONDANSETRON 4 MG/2 ML VIAL IVP PRN ×2 (14:45→21:55)
[2017-05-23 14:53] VITALS: BMI 33.6
[2017-05-23] MEDS: HYDROmorphone 1 MG/ML 1 ML SYRINGE IVP PRN ×2 (15:58→21:55)
--- NOTE | 2017-05-23 17:28 | P.GSCN ---
History of Present Illness Consult date: 05/23/17 Reason for Consult: Febrile UTI. Requesting physician: Bong Manzo History of present illness: The patient is a 37-year-old white female with no prior history of urolithiasis , and no family history of urolithiasis. She was treated several years ago for recurrent UTIs. For the past several days, she has experienced urinary urgency and dysuria. She began to experience right flank pain yesterday, which increased today. She became febrile and subsequently presented to the emergency room. A computed tomography scan showed no evidence of hydronephrosis. However, the right ureter was mildly increased in size, and some periureteric stranding was noted. A 3 mm calcification was seen within the right hemipelvis, and a right distal ureteral calculus could not be excluded. 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, chronic bronchitis, vasculitis History of Any Multi-Drug Resistant Organisms: None Reported Past Surgical History: Cholecystectomy, Ear Surgery, Tubal Ligation Additional Past Surgical History / Comment(s): carpel tunnel, ectopic removal 09/28/16 Past Psychological History: Anxiety, Depression Smoking Status: Never smoker Past Alcohol Use History: Rare Past Drug Use History: None Reported - Past Family History Father Family Medical History: No Reported History Mother Family Medical History: COPD Medications and Allergies Home Medications Medication Instructions Recorded Confirmed Type Ibuprofen [Motrin] 400 mg PO Q6HR PRN 05/23/17 05/23/17 History Allergies Allergy/AdvReac Type Severity Reaction Status Date / Time codeine AdvReac Itching Verified 05/23/17 12:45 diphenhydramine HCl AdvReac Hallucinati Verified 05/23/17 12:45 [From Benadryl] ons Surgical - Exam Vital Signs Temp Pulse Resp BP Pulse Ox 98.7 F 88 20 139/75 98 05/23/17 09:33 05/23/17 09:33 05/23/17 09:33 05/23/17 09:33 05/23/17 09:33 - General well developed, well nourished, no distress - Respiratory normal respiratory effort - Abdomen Abdomen: soft, non tender, no masses, no guarding, no rigid, no rebound - Rectum Mild right CVA tenderness. - Psychiatric oriented to time, oriented to person, oriented to place, speech is normal, memory intact Results - Labs 05/23/17 10:05/23/17 11:31 Abnormal Lab Results - Last 24 Hours (Table) 05/23/17 05/23/17 05/23/17 Range/Units 10: 10: 11:31 WBC 15.6 H (3.8-10.6) k/uL Neutrophils # 11.7 H (1.3-7.7) k/uL AST 60 H (14-36) U/L ALT 79 H (9-52) U/L Amylase <30 L (30-110) U/L Urine Appearance Cloudy H (Clear) Urine Protein 2+ H (Negative) Urine Blood Large H (Negative) Ur Leukocyte Esterase Large H (Negative) Urine RBC >182 H (0-5) /hpf Urine WBC >182 H (0-5) /hpf Urine WBC Clumps Few H (None) /hpf Urine Bacteria Rare H (None) /hpf Urine Yeast (Budding) Few H (None) /hpf Diabetes panel 05/23/17 Range/Units 11:31 Sodium 140 (137-145) mmol/L Potassium 4.1 (3.5-5.1) mmol/L Chloride 107 (98-107) mmol/L Carbon Dioxide 25 (22-30) mmol/L BUN 7 (7-17) mg/dL Creatinine 0.52 (0.52-1.04) mg/dL Glucose 91 (74-99) mg/dL Calcium 8.6 (8.4-10.2) mg/dL AST 60 H (14-36) U/L ALT 79 H (9-52) U/L Alkaline Phosphatase 93 (38-126) U/L Total Protein 6.4 (6.3-8.2) g/dL Albumin 3.7 (3.5-5.0) g/dL Calcium panel 05/23/17 Range/Units 11:31 Calcium 8.6 (8.4-10.2) mg/dL Albumin 3.7 (3.5-5.0) g/dL Pituitary panel 05/23/17 Range/Units 11:31 Sodium 140 (137-145) mmol/L Potassium 4.1 (3.5-5.1) mmol/L Chloride 107 (98-107) mmol/L Carbon Dioxide 25 (22-30) mmol/L BUN 7 (7-17) mg/dL Creatinine 0.52 (0.52-1.04) mg/dL Glucose 91 (74-99) mg/dL Calcium 8.6 (8.4-10.2) mg/dL Adrenal panel 05/23/17 Range/Units 11:31 Sodium 140 (137-145) mmol/L Potassium 4.1 (3.5-5.1) mmol/L Chloride 107 (98-107) mmol/L Carbon Dioxide 25 (22-30) mmol/L BUN 7 (7-17) mg/dL Creatinine 0.52 (0.52-1.04) mg/dL Glucose 91 (74-99) mg/dL Calcium 8.6 (8.4-10.2) mg/dL Total Bilirubin 0.3 (0.2-1.3) mg/dL AST 60 H (14-36) U/L ALT 79 H (9-52) U/L Alkaline Phosphatase 93 (38-126) U/L Total Protein 6.4 (6.3-8.2) g/dL Albumin 3.7 (3.5-5.0) g/dL - Imaging CT scan - abdomen: report reviewed, image reviewed Assessment and Plan (1) Pyelonephritis Status: Acute Plan: The patient is a 37-year-old white female with acute right pyelonephritis. I have reviewed the computed tomography scan, and I do not suspect suspect a ureteral calculus. She is currently receiving Rocephin, pending the urine culture results. Once the culture results are back, antibiotics can be changed accordingly. If she fails to appropriately respond to antibiotics, she will undergo further evaluation for the possibility of a right distal ureteral calculus. Time with Patient: Greater than 30
[2017-05-23] MEDS: SODIUM CHLORIDE 0.9% 1,000 ML IV SCH (19:39)
[2017-05-24] MEDS: SODIUM CHLORIDE 0.9% 1,000 ML IV SCH ×2 (01:07→13:03)
[2017-05-24] MEDS: ONDANSETRON 4 MG/2 ML VIAL IVP PRN ×3 (05:50→22:06)
[2017-05-24] MEDS: HYDROmorphone 1 MG/ML 1 ML SYRINGE IVP PRN ×3 (05:50→22:05)
[2017-05-24 08:02] LABS: Basophils % (A) 0 %; CH 31.2; CHCM 33.3; Eosinophils # (A) 0.3 k/uL (0-0.7); Eosinophils % (A) 3 %; HCT 38.2 % (34.0-46.0); HDW 2.62; HGB 12.4 gm/dL (11.4-16.0); Luc # (Auto) 0.11; Luc % (Auto) 1; Lymphocytes # (A) 2.3 k/uL (1.0-4.8); Lymphocytes % (A) 25 %; MCH 30.5 pg (25.0-35.0); MCHC 32.4 g/dL (31.0-37.0); MCV 94.3 fL (80.0-100.0); Mean Platelet Volume 7.1; Monocytes # (A) 0.5 k/uL (0-1.0); Monocytes % (A) 5 %; Neutrophils # (A) 6.2 k/uL (1.3-7.7); Neutrophils % (A) 66 %; RBC 4.05 m/uL (3.80-5.40); RDW 13.6 % (11.5-15.5); WBC 9.5 k/uL (3.8-10.6); WBC (Perox) 9.48
--- NOTE | 2017-05-24 08:09 | P.PN ---
Progress Note - Text Progress Note Date: 05/24/17 Ms. Radford is afebrile. She states that she is feeling better today. However, she continues to report mild right flank discomfort, as well as dysuria. Her appetite has returned and she is requesting to eat. The urine culture was pending. Continue IV antibiotics.
[2017-05-24 08:21] LABS: Anion Gap 7 mmol/L; Blood Urea Nitrogen 7 mg/dL (7-17); Calcium 8.3 mg/dL (8.4-10.2); Carbon Dioxide 25 mmol/L (22-30); Chloride 108 mmol/L (98-107); Glucose 92 mg/dL (74-99); Non-African American GFR(MDRD) >60 (>60 ml/min/1.73 sqM); Sodium 140 mmol/L (137-145)
[2017-05-24] MEDS: PANTOPRAZOLE 40 MG/10 ML VIAL IV SCH (09:12)
[2017-05-24] MEDS: KETOROLAC 30 MG/ML 1 ML VIAL IVP PRN ×2 (09:12→19:58)
--- NOTE | 2017-05-24 15:08 | P.PN ---
Subjective Progress Note Date: 05/24/17 Principal diagnosis: 37-year-old female that is admitted to the medical floor anticipated greater than 2 midnight stay with sepsis secondary to acute pyelonephritis with intractable nausea and vomiting we'll send for blood urine cultures, she started on empiric IV antibiotics with Rocephin, patient has CT evidence of a nonobstructive kidney stone. We'll treat supportively with the Zofran and Tylenol for nausea and fevers respectively, urologist been consulted for further recommendations. Patient is a high risk of being severely septic if treatment is attempted in the outpatient setting as she is unable to tolerate any by mouth antibiotics or fluids. patient reports that her right flank pain is much improved immediately requesting to eat denies any fevers or chills no acute events overnight Objective - Vital Signs Vital signs: Vital Signs Temp 98.2 F 05/24/17 08:00 Pulse 86 05/24/17 08:00 Resp 16 05/24/17 08:00 BP 119/71 05/24/17 08:00 Pulse Ox 96 05/24/17 08:00 Intake & Output 05/23/17 05/24/17 05/24/17 18:59 06:59 18:59 Intake Total 1600 600 Balance 1600 600 Weight 86.183 kg Intake: IV 600 Sodium Chloride 0.9% 1, 600 000 ml @ 100 mls/hr IV . Q10H GABRIEL Rx#:[id number] Intake, IV Titration 1600 Amount Sodium Chloride 0.9% 1, 1600 000 ml @ 100 mls/hr IV . Q10H GABRIEL Rx#:[id number] Other: # Voids 3 - Exam Constitutional: No acute distress, conversant, pleasant Eyes: Anicteric sclerae, moist conjunctiva, no lid-lag, PERRLA ENMT: NC/AT,Oropharynx clear, no erythema, exudates Neck:Supple, FROM, no masses, or JVD, No carotid bruits; No thyromegaly Lungs: Clear to auscultation, Clear to percussion, Normal respiratory effort, no accessory muscle use Cardiovascular: Heart regular in rate and rhythm, No murmurs, gallops, or rubs no peripheral edema Abdominal: Soft Nontender, nom distended, no guarding, no rebound or rigidity, Normoactive bowel sounds No hepatomegaly, No splenomegaly, No palpable mass No abdominal wall hernia noted, right CVA tenderness Skin: Normal temperature, tone, texture, turgor, No induration No subcutaneous nodules, No rash, lesions, No ulcers Extremities:No digital cyanosis No clubbing, Pedal pulses intact and symmetrical Radial pulses intact and symmetrical Normal gait and station, No calf tenderness Psychiatric: Alert and oriented to person, place and time, Appropriate affect Intact judgement Neuro: Muscles Strength 5/5 in all 4 extremities, Sensation to light touch grossly present throughout, Cranial nerves II-XII grossly intact. No focal sensory deficits - Labs CBC & Chem 7: 05/24/17 07:40 05/24/17 07:40 Labs: Abnormal Lab Results - Last 24 Hours (Table) 05/24/17 Range/Units 07:40 Chloride 108 H (98-107) mmol/L Calcium 8.3 L (8.4-10.2) mg/dL Microbiology - Last 24 Hours (Table) 05/23/17 10:15 Urine Culture - Preliminary Urine,Catheterized Assessment and Plan (1) Sepsis Narrative/Plan: * secondary to acute pyelonephritis urine cultures are pending, patient afebrile and leukocytosis resolving * Continue current antibiotic regimen with Rocephin Status: Acute (2) Pyelonephritis Status: Acute (3) Kidney stone Narrative/Plan: * Appreciate neurology recommendations we'll continue to follow Status: Acute (4) Intractable nausea and vomiting Narrative/Plan: * advance diet as tolerated Status: Acute Plan: patient much improved awaiting urine cultures will likely be discharged tomorrow
[2017-05-25] MEDS: SODIUM CHLORIDE 0.9% 1,000 ML IV SCH ×2 (05:12→14:19)
[2017-05-25] MEDS: HYDROmorphone 1 MG/ML 1 ML SYRINGE IVP PRN (05:12)
[2017-05-25] MEDS: ONDANSETRON 4 MG/2 ML VIAL IVP PRN (05:12)
[2017-05-25 07:42] VITALS: PULSE 77; RESP 16
[2017-05-25 08:57] LABS: Basophils % (A) 0 %; CH 30.1; CHCM 32.7; Eosinophils # (A) 0.4 k/uL (0-0.7); Eosinophils % (A) 5 %; HCT 38.6 % (34.0-46.0); HDW 2.71; HGB 12.6 gm/dL (11.4-16.0); Luc # (Auto) 0.15; Luc % (Auto) 2; Lymphocytes # (A) 2.3 k/uL (1.0-4.8); Lymphocytes % (A) 30 %; MCH 30.3 pg (25.0-35.0); MCHC 32.7 g/dL (31.0-37.0); MCV 92.6 fL (80.0-100.0); Mean Platelet Volume 6.9; Monocytes # (A) 0.3 k/uL (0-1.0); Monocytes % (A) 4 %; Neutrophils # (A) 4.7 k/uL (1.3-7.7); Neutrophils % (A) 60 %; RBC 4.17 m/uL (3.80-5.40); RDW 12.4 % (11.5-15.5); WBC 7.8 k/uL (3.8-10.6); WBC (Perox) 7.71
[2017-05-25] MEDS ORDERED: HYDROcodone/APAP 5-325MG 1 EACH TAB PO PRN (09:22)
[2017-05-25] MEDS: HYDROcodone/APAP 5-325MG 1 EACH TAB PO PRN ×2 (09:34→15:52)
[2017-05-25 11:03] LABS: Anion Gap 9 mmol/L; Blood Urea Nitrogen 7 mg/dL (7-17); Carbon Dioxide 24 mmol/L (22-30); Chloride 107 mmol/L (98-107); Glucose 107 mg/dL (74-99); Non-African American GFR(MDRD) >60 (>60 ml/min/1.73 sqM); Potassium 4.2 mmol/L (3.5-5.1); Sodium 140 mmol/L (137-145)
--- NOTE | 2017-05-25 14:11 | P.DS ---
Providers Date of admission: 05/23/17 13:29 Expected date of discharge: 05/25/17 Attending physician: Bong Manzo MD Consults: 05/23/17 12:49 Consult Physician Stat Consulting Provider: Mason Brito Consult Reason/Comments: Kidney stone, pyelonephritis Do you want consulting provider notified?: Already Contacted Primary care physician: Stated None - Discharge Diagnosis(es) (1) Pyelonephritis Current Visit: Yes Status: Acute Priority: High (2) Kidney stone Current Visit: Yes Status: Acute Hospital Course: This 37-year-old female that came in with symptoms of fever and flank pain. Found to have pyelonephritis. Patient was treated with IV Rocephin. Patient's symptoms didn't improve. Decreased dysuria. Patient Courtney moni and decreased costovertebral tenderness. On exam today patient is has no costovertebral tenderness, lungs are clear to auscultation 2., Heart normal rate and rhythm abdomen soft and depressible nontender, extremities no edema and seems to be in no acute distress Vitals are stable Again both urine cultures were negative. She did respond to Rocephin. So patient will be discharged on Keflex for 5 more days, Patient Condition at Discharge: Stable Plan - Discharge Summary New Discharge Prescriptions: New Cephalexin [Keflex] 500 mg PO Q12HR #10 cap No Action Ibuprofen [Motrin] 400 mg PO Q6HR PRN PRN Reason: Fever Discharge Medication List Ibuprofen [Motrin] 400 mg PO Q6HR PRN 05/23/17 [History] Cephalexin [Keflex] 500 mg PO Q12HR #10 cap 05/25/17 [Rx] Follow up Appointment(s)/Referral(s): None,Stated [Primary Care Provider] - 1-2 days Discharge Disposition: HOME SELF-CARE
[2017-05-25 15:04] VITALS: BP 148/78; TEMP 97.8
--- NOTE | 2017-05-25 15:47 | P.PN ---
Progress Note - Text Progress Note Date: 05/25/17 Ms. Radford is feeling somewhat better. She remains afebrile. Her leukocytosis has resolved. Her urine culture was negative. The computed tomography scan showed a right pelvic calcification, which I do not believe represents a ureteral calculus. She is being discharged home today on Keflex, and will follow-up with me in 2 weeks.
[2017-05-26] MEDS ORDERED: PANTOPRAZOLE 40 MG TABLET PO SCH (07:30)
== END 2017-05-25 16:10 | disposition home or self-care (01) | DRG 872 ==
LOC: EC 09:25 → OBSVTOIN 13:29 → 3OBS 13:29 → 3SUR 14:39
PROVIDERS: ADMIT Family Medicine; ATTEND Family Medicine
DX: A41.9 Sepsis, unspecified organism (principal); N10 Acute pyelonephritis; N20.0 Calculus of kidney; F32.9 Major depressive disorder, single episode, unspecified; F41.9 Anxiety disorder, unspecified; J42 Unspecified chronic bronchitis; J45.909 Unspecified asthma, uncomplicated; Z82.5 Family history of asthma and other chronic lower respiratory diseases; Z87.440 Personal history of urinary (tract) infections; R11.2 Nausea with vomiting, unspecified; I77.6 Arteritis, unspecified; Z88.5 Allergy status to narcotic agent; Z88.8 Allergy status to other drugs, medicaments and biological substances
CPT/HCPCS: 36415; 74176; 80048; 80053; 81001; 81025; 82150; 83690; 85025; 87040; 87086; 96361; 96365; 96375; 96376; 99285

== ENCOUNTER 2017-11-02 14:54 | Emergency (ER) | payer OTHER ==
[2017-11-02 15:34] VITALS: RESP 18
[2017-11-02] MEDS ORDERED: SODIUM CHLORIDE 0.9% 1,000 ML IV ONE (18:03)
[2017-11-02 18:07] LABS: Basophils # (A) 0.1 k/uL (0-0.2); Basophils % (A) 0 %; Eosinophils # (A) 0.6 k/uL (0-0.7); Eosinophils % (A) 4 %; HCT 41.9 % (34.0-46.0); HGB 13.6 gm/dL (11.4-16.0); Lymphocytes # (A) 4.5 k/uL (1.0-4.8); Lymphocytes % (A) 33 %; MCH 28.5 pg (25.0-35.0); MCHC 32.4 g/dL (31.0-37.0); MCV 87.9 fL (80.0-100.0); Monocytes # (A) 0.6 k/uL (0-1.0); Monocytes % (A) 4 %; Neutrophils % (A) 58 %; Platelet Count 355 k/uL (150-450); RBC 4.77 m/uL (3.80-5.40); RDW 12.6 % (11.5-15.5); WBC 13.9 k/uL (3.8-10.6)
[2017-11-02] MEDS ORDERED: ONDANSETRON 4 MG/2 ML VIAL IVP STA (18:08)
[2017-11-02] MEDS ORDERED: KETOROLAC 30 MG/ML 1 ML VIAL IVP STA (18:09)
[2017-11-02] MEDS ORDERED: MORPHINE SULFATE/PF 10MG/10ML VL IVP STA (18:09)
[2017-11-02 18:10] LABS: Amorphous Sediment,Urine Occasional /hpf; Appearance,Urine Cloudy (Clear); Bilirubin,Urine Negative (Negative); Blood,Urine Negative (Negative); Color,Urine Yellow; Glucose,Urine (UA) Negative (Negative); Ketones,Urine Negative (Negative); Leukocyte Esterase,Urine Small (Negative); Mucus,Urine Few /hpf; Nitrite,Urine Negative (Negative); PH, Urine 6.5 (5.0-8.0); Protein,Urine 1+ (Negative); RBC,Urine 3 /hpf (0-5); Specific Gravity,Urine 1.025 (1.001-1.035); Squamous Epithelial Cell,Urine 16 /hpf (0-4); WBC,Urine 52 /hpf (0-5)
--- NOTE | 2017-11-02 18:12 | ED ---
Abdominal Pain HPI - General Chief Complaint: Abdominal Pain Stated Complaint: kidney pain Time Seen by Provider: 11/02/17 18:02 Source: patient, RN notes reviewed, old records reviewed Mode of arrival: ambulatory Limitations: no limitations - History of Present Illness Initial Comments: This patient is a 37-year-old female presents emergency room is a 2.2 days left flank pain. She reports she's had history of pyelonephritis. She states that this morning she had a fever but has not had a fever at this time. She reports that her urine has had a foul odor and has been darker. Patient states that she was admitted in the past of pyelonephritis they determined that she never had a kidney stone at that time just a severe infection. She states that she feels nauseated but has had no vomiting. She wanted to come here sooner rather than later to take care of this before became worse or she would have to be admitted. Patient states that she has no specific abdominal pain. Surgical history includes cholecystectomy, tubal ligation, ear surgery. - Related Data Home Medications Medication Instructions Recorded Confirmed Albuterol Nebulized [Ventolin 2.5 mg INHALATION RT-Q6H PRN 11/02/17 11/02/17 Nebulized] Bisoprolol-Hctz 10-6.25 mg [Ziac 1 tab PO DAILY 11/02/17 11/02/17 10-6.25] DULoxetine HCL [Cymbalta] 60 mg PO DAILY 11/02/17 11/02/17 Lisinopril [Zestril] 5 mg PO DAILY 11/02/17 11/02/17 Pregabalin [Lyrica] 200 mg PO DAILY 11/02/17 11/02/17 Unisom Sleep+Immune Support 1 tab PO HS 11/02/17 11/02/17 traMADol HCL [Ultram] 50 mg PO TID PRN 11/02/17 11/02/17 Previous Rx's Medication Instructions Recorded Ciprofloxacin HCl [Cipro] 500 mg PO Q12HR 10 Days tab 11/02/17 Ketorolac [Toradol] 10 mg PO Q6HR #15 tab 11/02/17 Ondansetron Odt [Zofran Odt] 4 mg PO Q8HR PRN #12 tab 11/02/17 Phenazopyridine [Pyridium] 100 mg PO TID #9 tablet 11/02/17 Allergies Allergy/AdvReac Type Severity Reaction Status Date / Time codeine AdvReac Itching Verified 11/02/17 18:17 diphenhydramine HCl AdvReac Hallucinati Verified 11/02/17 18:17 [From Benadryl] ons Review of Systems ROS Statement: Those systems with pertinent positive or pertinent negative responses have been documented in the HPI. ROS Other: All systems not noted in ROS Statement are negative. 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, chronic bronchitis, vasculitis History of Any Multi-Drug Resistant Organisms: None Reported Past Surgical History: Cholecystectomy, Ear Surgery, Tubal Ligation Additional Past Surgical History / Comment(s): carpel tunnel, ectopic removal 09/28/16 Past Psychological History: Anxiety, Depression Smoking Status: Never smoker Past Alcohol Use History: Rare Past Drug Use History: None Reported - Past Family History Father Family Medical History: No Reported History Mother Family Medical History: COPD General Exam - General Exam Comments Initial Comments: 37-year-old female presents to the emergency department today. Doesn't appear to be in any acute distress. Limitations: no limitations General appearance: alert, in no apparent distress Head exam: Present: atraumatic, normocephalic, normal inspection Eye exam: Present: normal appearance, PERRL, EOMI. Absent: scleral icterus, conjunctival injection, periorbital swelling ENT exam: Present: normal exam, mucous membranes moist Neck exam: Present: normal inspection. Absent: tenderness, meningismus, lymphadenopathy Respiratory exam: Present: normal lung sounds bilaterally. Absent: respiratory distress, wheezes, rales, rhonchi, stridor Cardiovascular Exam: Present: regular rate, normal rhythm, normal heart sounds. Absent: systolic murmur, diastolic murmur, rubs, gallop, clicks GI/Abdominal exam: Present: soft, normal bowel sounds. Absent: distended, tenderness, guarding, rebound, rigid Extremities exam: Present: normal inspection, full ROM, normal capillary refill. Absent: tenderness, pedal edema, joint swelling, calf tenderness Back exam: Present: normal inspection, CVA tenderness (L) (Patient is some minimal left CVA tenderness.) Neurological exam: Present: alert, oriented X3, CN II-XII intact Psychiatric exam: Present: normal affect, normal mood Skin exam: Present: warm, dry, intact, normal color. Absent: rash Course Vital Signs 11/02/17 11/02/17 15:30 18:55 Temperature 97.9 F Pulse Rate 66 66 Respiratory 18 18 Rate Blood Pressure 134/62 106/53 O2 Sat by Pulse 100 96 Oximetry Medical Decision Making - Medical Decision Making 37-year-old female presents with chief complaint and she complaint of left flank pain should have here earlier today. She arrives here afebrile. Vital signs are stable. She reports she feels nauseated but has had no vomiting.. Patient has some mild CVA tenderness. She is afebrile here. White blood cell count is 13.9. Urinalysis positive for infection with many white blood cells. We will do urine culture. No red blood cells. KUB was normal. She was given IV fluids, pain medication. She was given 1 g of Rocephin. Patient will be discharged at this time with antibiotics for urinary tract infection. Discussed appropriate follow-up with primary care provider. We'll discharge her with nausea medicine and pain medicine as well. Discussed reports a follow- up and returning to the emergency department if any alarming signs or symptoms occur. - Lab Data Result diagrams: 11/02/17 17:50 11/02/17 17:50 Lab Results 11/02/17 11/02/17 11/02/17 Range/Units 17:50 17:50 17:50 WBC 13.9 H (3.8-10.6) k/uL RBC 4.77 (3.80-5.40) m/uL Hgb 13.6 (11.4-16.0) gm/dL Hct 41.9 (34.0-46.0) % MCV 87.9 (80.0-100.0) fL MCH 28.5 (25.0-35.0) pg MCHC 32.4 (31.0-37.0) g/dL RDW 12.6 (11.5-15.5) % Plt Count 355 (150-450) k/uL Neutrophils % 58 % Lymphocytes % 33 % Monocytes % 4 % Eosinophils % 4 % Basophils % 0 % Neutrophils # 8.0 H (1.3-7.7) k/uL Lymphocytes # 4.5 (1.0-4.8) k/uL Monocytes # 0.6 (0-1.0) k/uL Eosinophils # 0.6 (0-0.7) k/uL Basophils # 0.1 (0-0.2) k/uL Sodium 144 (137-145) mmol/L Potassium 3.7 (3.5-5.1) mmol/L Chloride 104 (98-107) mmol/L Carbon Dioxide 25 (22-30) mmol/L Anion Gap 15 mmol/L BUN 10 (7-17) mg/dL Creatinine 0.50 L (0.52-1.04) mg/dL Est GFR (CKD-EPI)AfAm >90 (>60 ml/min/1.73 sqM) Est GFR (CKD-EPI)NonAf >90 (>60 ml/min/1.73 sqM) Glucose 130 H (74-99) mg/dL Calcium 9.5 (8.4-10.2) mg/dL Total Bilirubin 0.3 (0.2-1.3) mg/dL AST 22 (14-36) U/L ALT 28 (9-52) U/L Alkaline Phosphatase 110 (38-126) U/L Total Protein 7.0 (6.3-8.2) g/dL Albumin 4.1 (3.5-5.0) g/dL Amylase 42 (30-110) U/L Lipase 106 (23-300) U/L Urine Color Urine Appearance (Clear) Urine pH (5.0-8.0) Ur Specific [place] (1.001-1.035) Urine Protein (Negative) Urine Glucose (UA) (Negative) Urine Ketones (Negative) Urine Blood (Negative) Urine Nitrite (Negative) Urine Bilirubin (Negative) Urine Urobilinogen (<2.0) mg/dL Ur Leukocyte Esterase (Negative) Urine RBC (0-5) /hpf Urine WBC (0-5) /hpf Ur Squamous Epith Cells (0-4) /hpf Amorphous Sediment (None) /hpf Urine Mucus (None) /hpf Urine HCG, Qual Not Detected (Not Detectd) 11/02/17 Range/Units 17:50 WBC (3.8-10.6) k/uL RBC (3.80-5.40) m/uL Hgb (11.4-16.0) gm/dL Hct (34.0-46.0) % MCV (80.0-100.0) fL MCH (25.0-35.0) pg MCHC (31.0-37.0) g/dL RDW (11.5-15.5) % Plt Count (150-450) k/uL Neutrophils % % Lymphocytes % % Monocytes % % Eosinophils % % Basophils % % Neutrophils # (1.3-7.7) k/uL Lymphocytes # (1.0-4.8) k/uL Monocytes # (0-1.0) k/uL Eosinophils # (0-0.7) k/uL Basophils # (0-0.2) k/uL Sodium (137-145) mmol/L Potassium (3.5-5.1) mmol/L Chloride (98-107) mmol/L Carbon Dioxide (22-30) mmol/L Anion Gap mmol/L BUN (7-17) mg/dL Creatinine (0.52-1.04) mg/dL Est GFR (CKD-EPI)AfAm (>60 ml/min/1.73 sqM) Est GFR (CKD-EPI)NonAf (>60 ml/min/1.73 sqM) Glucose (74-99) mg/dL Calcium (8.4-10.2) mg/dL Total Bilirubin (0.2-1.3) mg/dL AST (14-36) U/L ALT (9-52) U/L Alkaline Phosphatase (38-126) U/L Total Protein (6.3-8.2) g/dL Albumin (3.5-5.0) g/dL Amylase (30-110) U/L Lipase (23-300) U/L Urine Color Yellow Urine Appearance Cloudy H (Clear) Urine pH 6.5 (5.0-8.0) Ur Specific [place] 1.025 (1.001-1.035) Urine Protein 1+ H (Negative) Urine Glucose (UA) Negative (Negative) Urine Ketones Negative (Negative) Urine Blood Negative (Negative) Urine Nitrite Negative (Negative) Urine Bilirubin Negative (Negative) Urine Urobilinogen 2.0 (<2.0) mg/dL Ur Leukocyte Esterase Small H (Negative) Urine RBC 3 (0-5) /hpf Urine WBC 52 H (0-5) /hpf Ur Squamous Epith Cells 16 H (0-4) /hpf Amorphous Sediment Occasional H (None) /hpf Urine Mucus Few H (None) /hpf Urine HCG, Qual (Not Detectd) - Radiology Data Radiology results: report reviewed Nonacute abdomen no changes. Disposition Clinical Impression: Pyelonephritis Disposition: HOME SELF-CARE Condition: Good Instructions: Flank Pain (ED) Additional Instructions: Patient advised to rest, increase her fluid intake. Follow-up with primary care provider in the next 2 days. Return to emergency department if any alarming signs or symptoms occur. Ensure to take the antibiotics and take the medications all as prescribed. Prescriptions: Ciprofloxacin HCl [Cipro] 500 mg PO Q12HR 10 Days tab Ketorolac [Toradol] 10 mg PO Q6HR #15 tab Ondansetron Odt [Zofran Odt] 4 mg PO Q8HR PRN #12 tab PRN Reason: Nausea Phenazopyridine [Pyridium] 100 mg PO TID #9 tablet Referrals: Dangelo Lennon Jr, DO [Primary Care Provider] - 1-2 days Time of Disposition: 19:25
[2017-11-02] MEDS ORDERED: cefTRIAXone IN SWFI 1,000 MG/10 ML SYRINGE IVP STA (18:13)
[2017-11-02] MEDS ORDERED: SODIUM CHLORIDE 0.9% 1,000 ML IV SCH (18:15)
[2017-11-02 18:19] LABS: ALT 28 U/L (9-52); AST 22 U/L (14-36); Albumin 4.1 g/dL (3.5-5.0); Alkaline Phosphatase 110 U/L (38-126); Amylase 42 U/L (30-110); Anion Gap 15 mmol/L; Blood Urea Nitrogen 10 mg/dL (7-17); Calcium 9.5 mg/dL (8.4-10.2); Carbon Dioxide 25 mmol/L (22-30); Chloride 104 mmol/L (98-107); Glucose 130 mg/dL (74-99); Lipase 106 U/L (23-300); Potassium 3.7 mmol/L (3.5-5.1); Sodium 144 mmol/L (137-145); Total Bilirubin 0.3 mg/dL (0.2-1.3)
--- NOTE | 2017-11-02 19:19 | XR ---
EXAMINATION TYPE: XR KUB DATE OF EXAM: 11/02/2017 COMPARISON: 01/03/2016 HISTORY: Left flank pain TECHNIQUE: 2 views FINDINGS: There is no sign of intestinal obstruction or pneumoperitoneum. Fecal pattern is normal. I see no pathologic calcifications over the kidneys. There are clips from cholecystectomy. Lung bases a re clear. There is no evidence of a mass. IMPRESSION: Nonacute abdomen. No change.
[2017-11-02 19:29] VITALS: BP 101/59; PULSE 58; TEMP 97.6
[2017-11-02] MEDS ORDERED: ONDANSETRON 4 MG ODT STARTER PACK 2 TAB BTL PO STA (19:34)
[2017-11-02] MEDS ORDERED: traMADol 50 MG STARTER PACK 3 TAB BTL PO STA (19:42)
== END 2017-11-02 19:45 | disposition home or self-care (01) ==
LOC: EC 14:54
DX: N12 Tubulo-interstitial nephritis, not specified as acute or chronic (principal); F41.9 Anxiety disorder, unspecified; F32.9 Major depressive disorder, single episode, unspecified; Z79.899 Other long term (current) drug therapy; Z88.5 Allergy status to narcotic agent; Z88.8 Allergy status to other drugs, medicaments and biological substances
CPT/HCPCS: 36415; 80053; 82150; 83690; 85025; 81001; 81025; 87040; 87086; 74018; 99284; 96374; 96375 ×3; 96361; J2405; J0696; J1885; S0119; J2270

== ENCOUNTER → 2017-11-20 | Outpatient (CLI) | payer OTHER ==
--- NOTE | 2017-11-21 18:55 | MR ---
EXAMINATION TYPE: MR knee RT wo con DATE OF EXAM: 11/20/2017 COMPARISON: NONE HISTORY: Rt knee pain TECHNIQUE: Multiplanar, multisequence imaging of the right knee is performed without IV contrast. FINDINGS: MEDIAL MENISCUS: Anterior and posterior horns are intact without tear. There is some increased signal within the body of the meniscus which may be degenerative LATERAL MENISCUS: Anterior and posterior horns are intact without tear. CRUCIATE LIGAMENTS: The anterior and posterior cruciate ligaments are intact and unremarkable. COLLATERAL LIGAMENTS: The medial collateral ligament and lateral collateral ligament complex are inta ct and unremarkable. EXTENSOR MECHANISM: Visualized quadriceps and patellar tendons are intact. EFFUSION: Suprapatellar joint effusion is present.. POPLITEAL CYST: No popliteal/peña cyst. TRICOMPARTMENT SPACES: There is joint space loss especially in the medial compartment, marginal spurr ing is present in the medial lateral compartments CARTILAGE: Grade 3 to grade IV chondromalacia medial compartment, some reactive marrow signal change suspected at the medial femoral condyle BONE MARROW SIGNAL: Edema in the medial femoral condyle suspected OTHER: Prepatellar subcutaneous edema is present.. IMPRESSION: Osteoarthritis. Joint effusion. Prepatellar soft tissue edema
== END | disposition home or self-care (01) ==
LOC: RADMRIMAIN 19:47
PROVIDERS: ATTEND Orthopaedic Surgery
DX: M17.11 Unilateral primary osteoarthritis, right knee (principal)

== ENCOUNTER 2017-12-26 16:52 | Emergency (ER) | payer OTHER ==
[2017-12-26 16:58] VITALS: TEMP 98
[2017-12-26] MEDS ORDERED: SODIUM CHLORIDE 0.9% 1,000 ML IV STA (18:22)
[2017-12-26] MEDS ORDERED: MORPHINE SULFATE 4 MG/ML SYRINGE IV STA (18:22)
[2017-12-26] MEDS ORDERED: KETOROLAC 30 MG/ML 1 ML VIAL IVP STA (18:22)
--- NOTE | 2017-12-26 18:27 | ED ---
Abdominal Pain HPI - General Chief Complaint: Abdominal Pain Stated Complaint: Abd/Back Pain Time Seen by Provider: 12/26/17 18:03 Source: patient Mode of arrival: ambulatory Limitations: no limitations - History of Present Illness Initial Comments: Patient is a 37-year-old female presenting for abdominal pain. Patient states that it started this morning at 9 AM is located in her left flank and feels like a dull constant sensation with intermittent radiation to her left lower quadrant of her abdomen. There are no modifying factors and she feels like she is having difficulty urinating. She also admits to subjective fevers but no chills or vomiting/diarrhea. She also states that she has nausea with some dizziness/lightheadedness. She denies any vaginal bleeding or discharge and says that this happened before and at that time she had a urinary tract infection. - Related Data Home Medications Medication Instructions Recorded Confirmed Albuterol Nebulized [Ventolin 2.5 mg INHALATION RT-Q6H PRN 11/02/17 11/02/17 Nebulized] Bisoprolol-Hctz 10-6.25 mg [Ziac 1 tab PO DAILY 11/02/17 11/02/17 10-6.25] DULoxetine HCL [Cymbalta] 60 mg PO DAILY 11/02/17 11/02/17 Lisinopril [Zestril] 5 mg PO DAILY 11/02/17 11/02/17 Pregabalin [Lyrica] 200 mg PO DAILY 11/02/17 11/02/17 Unisom Sleep+Immune Support 1 tab PO HS 11/02/17 11/02/17 traMADol HCL [Ultram] 50 mg PO TID PRN 11/02/17 11/02/17 Previous Rx's Medication Instructions Recorded Ciprofloxacin HCl [Cipro] 500 mg PO Q12HR 10 Days tab 11/02/17 Ketorolac [Toradol] 10 mg PO Q6HR #15 tab 11/02/17 Ondansetron Odt [Zofran Odt] 4 mg PO Q8HR PRN #12 tab 11/02/17 Phenazopyridine [Pyridium] 100 mg PO TID #9 tablet 11/02/17 HYDROcodone/APAP 5-325MG [Dwarf 1 tab PO Q6HR PRN #12 tab 12/26/17 5-325] Sulfamethox-Tmp 800-160Mg [Bactrim 1 tab PO Q12HR 5 Days #10 tab 12/26/17 DS 800-160 mg] Allergies Allergy/AdvReac Type Severity Reaction Status Date / Time codeine AdvReac Itching Verified 12/26/17 16:58 diphenhydramine HCl AdvReac Hallucinati Verified 12/26/17 16:58 [From Benadryl] ons Review of Systems ROS Statement: Those systems with pertinent positive or pertinent negative responses have been documented in the HPI. Constitutional: Negative for chills, fatigue and positive for fever. HENT: Negative for congestion. Respiratory: Negative for chest tightness, shortness of breath and wheezing. Negative for cough Cardiovascular: Negative for chest pain and palpitations. Gastrointestinal: Positive for abdominal pain and nausea. Negative for abdominal distention, diarrhea, and vomiting. Genitourinary: Negative for dysuria. Positive for urinary hesitancy Musculoskeletal: Negative for back pain, neck pain and neck stiffness. Positive for left flank pain Skin: Negative for color change. Neurological: Negative for dizziness, speech difficulty, weakness and light- headedness. Psychiatric/Behavioral: Negative for agitation and confusion. The patient is not nervous/anxious. ROS Other: All systems not noted in ROS Statement are negative. 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, chronic bronchitis, vasculitis History of Any Multi-Drug Resistant Organisms: None Reported Past Surgical History: Cholecystectomy, Ear Surgery, Tubal Ligation Additional Past Surgical History / Comment(s): carpel tunnel, ectopic removal 09/28/16 Past Psychological History: Anxiety, Depression Smoking Status: Never smoker Past Alcohol Use History: Rare Past Drug Use History: None Reported - Past Family History Father Family Medical History: No Reported History Mother Family Medical History: COPD General Exam - General Exam Comments Initial Comments: Constitutional: Pt is oriented to person, place, and time. Pt appears well- developed and well-nourished. No distress. HENT: Head: Normocephalic and atraumatic. Eyes: EOM are normal. Neck: Normal range of motion. Neck supple. Cardiovascular: Normal rate, regular rhythm, S1 normal, S2 normal and normal heart sounds. Exam reveals no gallop and no friction rub. No murmur heard. Pulmonary/Chest: Effort normal and breath sounds normal. No tachypnea and no bradypnea. No respiratory distress. No wheezes or rales noted. Abdominal: Soft. Bowel sounds are normal. Pt exhibits no shifting dullness, no distension, no pulsatile liver, no fluid wave, no abdominal bruit and no ascites. There is no tenderness. There is no rigidity, no rebound, no guarding, no tenderness at McBurney's point and negative Lewis's sign. Musculoskeletal: Normal range of motion. Positive for left CVA tenderness Neurological: Pt is alert and oriented to person, place, and time. No cranial nerve deficit. Skin: Skin is warm and dry. No rash noted. Pt is not diaphoretic. No erythema. No pallor. Psychiatric: Pt has a normal mood and affect. Pt behavior is normal. Thought content normal. Limitations: no limitations Course Vital Signs 12/26/17 12/26/17 16:56 20:55 Temperature 98.0 F Pulse Rate 94 66 Respiratory 20 18 Rate Blood Pressure 134/67 122/59 O2 Sat by Pulse 98 98 Oximetry Medical Decision Making - Medical Decision Making Laboratory studies showed no evidence of leukocytosis and electrolytes are relatively within normal limits. Urinalysis did show 5 WBCs with 11 squamous cell. There is a few urine bacteria based on physical exam as well as the studies, it is suspected that the patient's symptoms are secondary to a UTI. CT abdomen was also performed to evaluate for renal calculi which is negative. Patient was advised that other emergent pathology cannot be completely excluded but based on physical exam and labs, it was less likely. Patient was advised to follow up with PCP next 1-2 days for which she was agreeable to. Patient was also given a gram of Rocephin 1 the emergency department and given a prescription for Bactrim. - Lab Data Result diagrams: 12/26/17 18:40 12/26/17 18:40 Lab Results 12/26/17 12/26/17 12/26/17 Range/Units 18:40 18:40 18:40 WBC 9.9 (3.8-10.6) k/uL RBC 4.37 (3.80-5.40) m/uL Hgb 13.1 (11.4-16.0) gm/dL Hct 39.1 (34.0-46.0) % MCV 89.5 (80.0-100.0) fL MCH 30.0 (25.0-35.0) pg MCHC 33.5 (31.0-37.0) g/dL RDW 12.7 (11.5-15.5) % Plt Count 330 (150-450) k/uL Neutrophils % 58 % Lymphocytes % 30 % Monocytes % 5 % Eosinophils % 4 % Basophils % 0 % Neutrophils # 5.8 (1.3-7.7) k/uL Lymphocytes # 3.0 (1.0-4.8) k/uL Monocytes # 0.5 (0-1.0) k/uL Eosinophils # 0.4 (0-0.7) k/uL Basophils # 0.0 (0-0.2) k/uL Sodium 142 (137-145) mmol/L Potassium 4.8 (3.5-5.1) mmol/L Chloride 108 H (98-107) mmol/L Carbon Dioxide 22 (22-30) mmol/L Anion Gap 12 mmol/L BUN 13 (7-17) mg/dL Creatinine 0.54 (0.52-1.04) mg/dL Est GFR (CKD-EPI)AfAm >90 (>60 ml/min/1.73 sqM) Est GFR (CKD-EPI)NonAf >90 (>60 ml/min/1.73 sqM) Glucose 95 (74-99) mg/dL Calcium 9.2 (8.4-10.2) mg/dL Total Bilirubin 0.6 (0.2-1.3) mg/dL AST 42 H (14-36) U/L ALT 28 (9-52) U/L Alkaline Phosphatase 77 (38-126) U/L Total Protein 6.9 (6.3-8.2) g/dL Albumin 4.1 (3.5-5.0) g/dL Amylase 47 (30-110) U/L Lipase 206 (23-300) U/L Urine Color Light Yellow Urine Appearance Cloudy H (Clear) Urine pH 6.5 (5.0-8.0) Ur Specific [place] 1.011 (1.001-1.035) Urine Protein Negative (Negative) Urine Glucose (UA) Negative (Negative) Urine Ketones Negative (Negative) Urine Blood Small H (Negative) Urine Nitrite Negative (Negative) Urine Bilirubin Negative (Negative) Urine Urobilinogen <2.0 (<2.0) mg/dL Ur Leukocyte Esterase Small H (Negative) Urine WBC 5 (0-5) /hpf Ur Squamous Epith Cells 11 H (0-4) /hpf Urine Bacteria Few H (None) /hpf Urine HCG, Qual (Not Detectd) 12/26/17 Range/Units 18:40 WBC (3.8-10.6) k/uL RBC (3.80-5.40) m/uL Hgb (11.4-16.0) gm/dL Hct (34.0-46.0) % MCV (80.0-100.0) fL MCH (25.0-35.0) pg MCHC (31.0-37.0) g/dL RDW (11.5-15.5) % Plt Count (150-450) k/uL Neutrophils % % Lymphocytes % % Monocytes % % Eosinophils % % Basophils % % Neutrophils # (1.3-7.7) k/uL Lymphocytes # (1.0-4.8) k/uL Monocytes # (0-1.0) k/uL Eosinophils # (0-0.7) k/uL Basophils # (0-0.2) k/uL Sodium (137-145) mmol/L Potassium (3.5-5.1) mmol/L Chloride (98-107) mmol/L Carbon Dioxide (22-30) mmol/L Anion Gap mmol/L BUN (7-17) mg/dL Creatinine (0.52-1.04) mg/dL Est GFR (CKD-EPI)AfAm (>60 ml/min/1.73 sqM) Est GFR (CKD-EPI)NonAf (>60 ml/min/1.73 sqM) Glucose (74-99) mg/dL Calcium (8.4-10.2) mg/dL Total Bilirubin (0.2-1.3) mg/dL AST (14-36) U/L ALT (9-52) U/L Alkaline Phosphatase (38-126) U/L Total Protein (6.3-8.2) g/dL Albumin (3.5-5.0) g/dL Amylase (30-110) U/L Lipase (23-300) U/L Urine Color Urine Appearance (Clear) Urine pH (5.0-8.0) Ur Specific [place] (1.001-1.035) Urine Protein (Negative) Urine Glucose (UA) (Negative) Urine Ketones (Negative) Urine Blood (Negative) Urine Nitrite (Negative) Urine Bilirubin (Negative) Urine Urobilinogen (<2.0) mg/dL Ur Leukocyte Esterase (Negative) Urine WBC (0-5) /hpf Ur Squamous Epith Cells (0-4) /hpf Urine Bacteria (None) /hpf Urine HCG, Qual Not Detected (Not Detectd) Disposition Clinical Impression: Left flank pain, Urinary tract infection Disposition: HOME SELF-CARE Condition: Fair Instructions: Abdominal Pain (ED) Prescriptions: HYDROcodone/APAP 5-325MG [Dwarf 5-325] 1 tab PO Q6HR PRN #12 tab PRN Reason: Pain Sulfamethox-Tmp 800-160Mg [Bactrim DS 800-160 mg] 1 tab PO Q12HR 5 Days #10 tab Is patient prescribed a controlled substance at d/c from ED?: Yes Referrals: Dangelo Lennon Jr, DO [Primary Care Provider] - 1-2 days Time of Disposition: 21:04
[2017-12-26] MEDS ORDERED: ONDANSETRON 4 MG/2 ML VIAL IVP STA (18:35)
[2017-12-26 19:14] LABS: Basophils % (A) 0 %; Eosinophils # (A) 0.4 k/uL (0-0.7); Eosinophils % (A) 4 %; HCT 39.1 % (34.0-46.0); HGB 13.1 gm/dL (11.4-16.0); Lymphocytes % (A) 30 %; MCHC 33.5 g/dL (31.0-37.0); MCV 89.5 fL (80.0-100.0); Mean Platelet Volume 7.7; Monocytes # (A) 0.5 k/uL (0-1.0); Monocytes % (A) 5 %; Neutrophils # (A) 5.8 k/uL (1.3-7.7); Neutrophils % (A) 58 %; Platelet Count 330 k/uL (150-450); RBC 4.37 m/uL (3.80-5.40); RDW 12.7 % (11.5-15.5); WBC 9.9 k/uL (3.8-10.6)
[2017-12-26 19:16] LABS: Appearance,Urine Cloudy (Clear); Bacteria,Urine Few /hpf; Bilirubin,Urine Negative (Negative); Blood,Urine Small (Negative); Color,Urine Light Yellow; Glucose,Urine (UA) Negative (Negative); Ketones,Urine Negative (Negative); Leukocyte Esterase,Urine Small (Negative); Nitrite,Urine Negative (Negative); PH, Urine 6.5 (5.0-8.0); Protein,Urine Negative (Negative); Specific Gravity,Urine 1.011 (1.001-1.035); Squamous Epithelial Cell,Urine 11 /hpf (0-4); Urobilinogen,Urine <2.0 mg/dL (<2.0); WBC,Urine 5 /hpf (0-5)
[2017-12-26 19:23] LABS: ALT 28 U/L (9-52); AST 42 U/L (14-36); Albumin 4.1 g/dL (3.5-5.0); Alkaline Phosphatase 77 U/L (38-126); Amylase 47 U/L (30-110); Anion Gap 12 mmol/L; Blood Urea Nitrogen 13 mg/dL (7-17); Calcium 9.2 mg/dL (8.4-10.2); Carbon Dioxide 22 mmol/L (22-30); Chloride 108 mmol/L (98-107); Glucose 95 mg/dL (74-99); Lipase 206 U/L (23-300); Potassium 4.8 mmol/L (3.5-5.1); Sodium 142 mmol/L (137-145); Total Bilirubin 0.6 mg/dL (0.2-1.3); Total Protein 6.9 g/dL (6.3-8.2)
[2017-12-26] MEDS ORDERED: cefTRIAXone IN SWFI 1,000 MG/10 ML SYRINGE IVP STA (19:57)
--- NOTE | 2017-12-26 20:16 | CT ---
EXAMINATION TYPE: CT abdomen pelvis wo con DATE OF EXAM: 12/26/2017 COMPARISON: Prior CT abdomen pelvis 05/23/2017 HISTORY: Left sided pain with difficulty urinating CT DLP: 864.1 mGycm Automated exposure control for dose reduction was used. TECHNIQUE: Helical acquisition of images from the lung bases through the pelvis. FINDINGS: Lack of contrast could compromise sensitivity. LUNG BASES: No significant abnormality is appreciated. AORTA: No significant abnormality is appreciated. LIVER/GB: Patient is post cholecystectomy. Liver is enlarged and shows low attenuation. PANCREAS: No significant abnormality is seen. SPLEEN: No significant abnormality is seen. ADRENALS: No significant abnormality is seen. KIDNEYS: No significant abnormality is seen. Surgical clips present in the left hemipelvis. REPRODUCTIVE ORGANS: No significant abnormality is seen. URINARY BLADDER: No significant abnormality is seen. BOWEL: No significant abnormality is seen. FREE AIR: No Free Air is visible. ASCITES: None visible. PELVIC ADENOPATHY: None visualized. RETROPERITONEAL ADENOPATHY: No Retroperitoneal Adenopathy visible. OSSEOUS STRUCTURES: No significant abnormality is seen. IMPRESSION: HEPATOMEGALY, FINDINGS LIKELY REPRESENT HEPATIC STEATOSIS. Postop changes. Noncontrast exam.
[2017-12-26 20:55] VITALS: BP 122/59; PULSE 66; RESP 18
== END 2017-12-26 21:14 | disposition home or self-care (01) ==
LOC: EC 16:52
DX: N39.0 Urinary tract infection, site not specified (principal); R11.0 Nausea; J45.909 Unspecified asthma, uncomplicated; F32.9 Major depressive disorder, single episode, unspecified; F41.9 Anxiety disorder, unspecified; Z79.899 Other long term (current) drug therapy; Z88.5 Allergy status to narcotic agent; Z88.8 Allergy status to other drugs, medicaments and biological substances; Z90.49 Acquired absence of other specified parts of digestive tract
CPT/HCPCS: 36415; 80053; 82150; 83690; 85025; 81001; 81025; 74176; 99284; 96374; 96375 ×3; 96361 ×2; J2270; J2405; J0696; J1885

== ENCOUNTER 2018-03-06 13:33 | Emergency (ER) | payer OTHER ==
[2018-03-06 14:00] VITALS: BP 163/78; PULSE 82; RESP 18; TEMP 97.5
--- NOTE | 2018-03-06 15:01 | ED ---
ENT HPI - General Chief complaint: ENT Stated complaint: Ear pain Time Seen by Provider: 03/06/18 14:03 Source: patient Mode of arrival: ambulatory Limitations: no limitations - History of Present Illness Initial comments: This a 37-year-old female past medical history of chronic otitis media and cholesteatoma s/p partial mastoidectomy of the right ear who presents today for chief complaint of right ear pain, and otorrhea. Pt states that she for the past 3 days she has been experiencing increasing right ear pain and on and off vertigo. 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 Pt states that the pain feels like when she has otitis externa in the past but she was concerned that maybe her cholesteatoma was back. Pt denies recent inner ear infection, postauricular mass/tenderness, recent abx use, headache, neck stiffness, photophobia, visual changes, nausea or vomiting. Pt states she hasnt seen an ENT since her right partial mastoidectomy 5 years ago from previous cholesteatoma. Pt admits to having chills but denies fever, jaw pain, tooth pain, foreign body, recent travel on plane or diving, recent URI. In addition patient denies any recent shortness of breath, chest pain, back pain, abdominal pain, numbness or tingling, dysuria or hematuria, constipation or diarrhea, headaches or visual changes, or any other complaints. - Related Data Home Medications Medication Instructions Recorded Confirmed Albuterol Nebulized [Ventolin 2.5 mg INHALATION RT-Q6H PRN 11/02/17 03/06/18 Nebulized] Bisoprolol-Hctz 10-6.25 mg [Ziac 1 tab PO DAILY 11/02/17 03/06/18 10-6.25] DULoxetine HCL [Cymbalta] 60 mg PO DAILY 11/02/17 03/06/18 Lisinopril [Zestril] 5 mg PO DAILY 11/02/17 03/06/18 Pregabalin [Lyrica] 200 mg PO DAILY 11/02/17 03/06/18 Previous Rx's Medication Instructions Recorded Amoxic-Pot Clav 500-125 mg 1 tab PO Q12HR 7 Days #14 tab 03/06/18 [Augmentin 500-125 mg] Ibuprofen [Motrin] 800 mg PO Q8H PRN 7 Days #21 tab 03/06/18 Ofloxacin 0.3% Otic Soln [Floxin 5 drops RIGHT EAR BID 7 Days #1 03/06/18 0.3% Otic Soln] bottle Allergies Allergy/AdvReac Type Severity Reaction Status Date / Time codeine AdvReac Itching Verified 03/06/18 14:00 diphenhydramine HCl AdvReac Hallucinati Verified 03/06/18 14:00 [From Benadryl] ons Review of Systems ROS Statement: Those systems with pertinent positive or pertinent negative responses have been documented in the HPI. ROS Other: All systems not noted in ROS Statement are negative. Constitutional: Reports: chills. Denies: fever ENT: Reports: as per HPI, ear pain, hearing loss (this is her baseline) Respiratory: Denies: cough, dyspnea Cardiovascular: Denies: chest pain, palpitations Gastrointestinal: Denies: abdominal pain, nausea, vomiting, diarrhea, constipation Genitourinary: Denies: urgency, dysuria, frequency Musculoskeletal: Denies: back pain Skin: Denies: rash, lesions Neurological: Reports: vertigo (pt often experiences since partial mastoidectomy ). Denies: headache, weakness, numbness, paresthesias, confusion, abnormal gait 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, chronic bronchitis, vasculitis History of Any Multi-Drug Resistant Organisms: None Reported Past Surgical History: Cholecystectomy, Ear Surgery, Tubal Ligation Additional Past Surgical History / Comment(s): carpel tunnel, ectopic removal 09/28/16 Past Psychological History: Anxiety, Depression Smoking Status: Never smoker Past Alcohol Use History: Rare Past Drug Use History: None Reported - Past Family History Father Family Medical History: No Reported History Mother Family Medical History: COPD General Exam - General Exam Comments Initial Comments: General: The patient is awake and alert, in no distress, and does not appear acutely ill. Eye: Pupils are equal, round and reactive to light, extra-ocular movements are intact. No nystagmus. There is normal conjunctiva bilaterally. No signs of icterus. Ears, nose, mouth and throat: There are moist mucous membranes and no oral lesions. There no erythema, tenderness or masses of post-auricular areas b/l. Pain with pulling of the external auricle of the right ear and pushing the tragus. Right external auditory canal mildly erythematous and edematous with malodorous discharge. Right TM erythematous there is sclerosis of the right TM, with no evidence of obvious perforation or effusion. However views were limited due to edema of the external auditory canal. There was no granulation tissue present in the external auditory canal. Examination of the left EAC within normal limits no discharge, edema or erythema. TM of the left ear reveals normal TM with cone of light and malleous present no effusion, retraction, perforation or erythema. Pt is unable to hear to finger rubbing in the right ear , with gross hearing intact to finger rub in the left ear. Neck: The neck is supple, there is no tenderness or JVD. Cardiovascular: There is a regular rate and rhythm. No murmur, rub or gallop is appreciated. Respiratory: Lungs are clear to auscultation, respirations are non-labored, breath sounds are equal. No wheezes, stridor, rales, or rhonchi. Neurological: A&O x 3. CN II-XII intact, There are no obvious motor or sensory deficits. Coordination appears grossly intact. Speech is normal. Skin: Skin is warm and dry and no rashes or lesions are noted. Psychiatric: Cooperative, appropriate mood & affect, normal judgment. Limitations: no limitations Course Vital Signs 03/06/18 13:45 Temperature 97.5 F L Pulse Rate 82 Respiratory 18 Rate Blood Pressure 163/78 O2 Sat by Pulse 98 Oximetry Medical Decision Making - Medical Decision Making 37yo female with PMH of previous cholesteatoma with partial right sided mastoidectomy who presents today for right ear pain concerned for possible recurring cholesteatoma. CT of the internal auditory canal was obtained and review by myself and radiologist revealing changes of partial mastoidectomy and sclerosis of the tympanic membrane, there was no evidence to suggest recurrence of the cholesteatoma. Given physical exam findings consistent with dx of both otitis media and externa pt was started on augementin (opposed to just amoxicillin due to hx of recurrent inner ear infection) and ofloxacin drops. Pt was URGED to f/u with ENT within 24 hours for further evaluation and instructed to return to the ER for worsening of changing symptoms. Pt understood and stated that she would. Case was discussed with Dr. Stuart who at this time feel pt is stable for d/c with ENT f/u. Pt happy with plan and discharged in stable condition, afebrile. Disposition Clinical Impression: Otitis externa, Right ear pain Disposition: HOME SELF-CARE Condition: Good Instructions: Otitis Externa (ED), Earache (ED) Additional Instructions: Please use medication as discussed. Please follow-up with ENT tomorrow. Please return to emergency room if the symptoms increase or worsen or for any other concerns or if symptoms have not improve in 48 hours as discussed. Prescriptions: Amoxic-Pot Clav 500-125 mg [Augmentin 500-125 mg] 1 tab PO Q12HR 7 Days #14 tab Ibuprofen [Motrin] 800 mg PO Q8H PRN 7 Days #21 tab PRN Reason: Pain Ofloxacin 0.3% Otic Soln [Floxin 0.3% Otic Soln] 5 drops RIGHT EAR BID 7 Days # 1 bottle Is patient prescribed a controlled substance at d/c from ED?: No Referrals: Dangelo Lennon Jr, DO [Primary Care Provider] - 1-2 days Arun Madsen MD [STAFF PHYSICIAN] - 1-2 days Time of Disposition: 16:38
[2018-03-06] MEDS ORDERED: KETOROLAC 30 MG/ML 1 ML VIAL IM STA (15:03)
--- NOTE | 2018-03-06 15:39 | CT ---
EXAMINATION TYPE: CT iac wo con DATE OF EXAM: 03/06/2018 COMPARISON: 07/09/2010 HISTORY: Right ear pain x 3 days. History of cholesteatoma and reconstructive surgery. CT DLP: 142.7 mGycm. Automated Exposure Control for Dose Reduction was Utilized. TECHNIQUE: CT scan of internal auditory canal is performed without contrast, thin cut axial images ar e obtained, coronal reformatted images are also reviewed. FINDINGS: There is redemonstration of partial mastoidectomy on the right. There is diffuse thickening of the tympanic membrane. The scutum appears surgically altered. Right-sided ossicular chain is no l onger clearly identified and may be radiolucent due to prior surgical replacement or absent due to th e prior cholesteatoma. There is surgical augmentation of the epitympanum which appears patent. Hypoty mpanum is also unremarkable. No fluid is seen within the middle ear cavity. External ear cavities are patent although mild cerumen is seen on the left. The left middle ear cavity is unremarkable. Left m astoid air cells are well aerated as are the remaining right mastoid air cells. The cochlea and the s emicircular canals are symmetric and unremarkable. Vestibular aqueduct and internal carotid canal ap pear unremarkable. Temporomandibular joints are maintained bilaterally. There is mild mucosal thickening within the ethm oid sinuses and maxillary sinuses as well as within the frontal sinus. The right frontal sinus is hyp oplastic. Orbits are symmetric. Evaluation of intracranial structures is limited given technique. Vis ualized portion brain parenchyma is felt within normal limits. IMPRESSION: 1. Chronic thickening of the right tympanic membrane as seen on the prior exam of 2009, postsurgical change from prior right partial mastoidectomy, and nonvisualization of the right ossicular chain. Thi s may be radiolucent and surgically replaced or absent from the prior cholesteatoma. No fluid within the right middle ear cavity or residual soft tissue to suggest recurrence of cholesteatoma. 2. Mild paranasal sinus disease.
[2018-03-06] MEDS ORDERED: HYDROcodone/APAP 5-325MG 1 EACH TAB PO STA (16:32)
== END 2018-03-06 16:56 | disposition home or self-care (01) ==
LOC: EC 13:33
DX: H60.91 Unspecified otitis externa, right ear (principal); J45.909 Unspecified asthma, uncomplicated; F41.9 Anxiety disorder, unspecified; F32.9 Major depressive disorder, single episode, unspecified; Z98.890 Other specified postprocedural states; Z79.899 Other long term (current) drug therapy; Z88.5 Allergy status to narcotic agent; Z88.8 Allergy status to other drugs, medicaments and biological substances
CPT/HCPCS: 70480; 99283; 96372; J1885

== ENCOUNTER 2018-05-25 15:10 | Emergency (ER) | payer OTHER ==
[2018-05-25] MEDS ORDERED: ONDANSETRON 4 MG/2 ML VIAL IVP STA (15:48)
[2018-05-25] MEDS ORDERED: MORPHINE SULFATE 4 MG/ML SYRINGE IV STA (15:48)
[2018-05-25] MEDS ORDERED: SODIUM CHLORIDE 0.9% 1,000 ML IV STA (15:48)
--- NOTE | 2018-05-25 16:06 | ED ---
General Adult HPI - General Chief complaint: Abdominal Pain Stated complaint: Flank pain Time Seen by Provider: 05/25/18 15:35 Source: patient, RN notes reviewed Mode of arrival: ambulatory Limitations: no limitations - History of Present Illness Initial comments: Patient 38-year-old female presented to the emergency room today with a chief complaint of left sided flank pain over the last 4 days. She does admit that she's had kidney infections and also ectopic in the past that had similar symptoms. She states that she has been splinted in a sharp pain located in the left flank. She does admit that she's had pressure and dysuria at times. She states since coming go. Patient denies any other complaints or symptoms. Denies any vaginal bleeding or discharge. Patient denies any recent fever, chills, shortness of breath, chest pain, numbness or tingling, dysuria or hematuria, constipation or diarrhea, headaches or visual changes, or any other complaints. - Related Data Previous Rx's Medication Instructions Recorded Sulfamethox-Tmp 800-160Mg [Bactrim 1 tab PO Q12HR #20 tab 05/25/18 DS 800-160 mg] Allergies Allergy/AdvReac Type Severity Reaction Status Date / Time codeine AdvReac Itching Verified 05/25/18 15:58 diphenhydramine HCl AdvReac Hallucinati Verified 05/25/18 15:58 [From Benadryl] ons Review of Systems ROS Statement: Those systems with pertinent positive or pertinent negative responses have been documented in the HPI. ROS Other: All systems not noted in ROS Statement are negative. 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, chronic bronchitis, vasculitis, ectopic History of Any Multi-Drug Resistant Organisms: None Reported Past Surgical History: Cholecystectomy, Ear Surgery, Tubal Ligation Additional Past Surgical History / Comment(s): carpel tunnel, ectopic removal 09/28/16 Past Psychological History: Anxiety, Depression Smoking Status: Never smoker Past Alcohol Use History: Rare Past Drug Use History: None Reported - Past Family History Father Family Medical History: No Reported History Mother Family Medical History: COPD General Exam - General Exam Comments Initial Comments: General: The patient is awake and alert. Eye: There is normal conjunctiva bilaterally. No signs of icterus. Ears, nose, mouth and throat: There are moist mucous membranes and no oral lesions. Neck: The neck is supple, there is no tenderness or JVD. Cardiovascular: There is a regular rate and rhythm. No murmur, rub or gallop is appreciated. Respiratory: Lungs are clear to auscultation, respirations are non-labored, breath sounds are equal. No wheezes, stridor, rales, or rhonchi. Gastrointestinal: Abdomen soft on palpation. Patient does have tenderness in left upper and lower quadrant. Tender in the left CVA. No rebound or guarding. Musculoskeletal: Normal ROM, no tenderness. Sensation intact. Strength 5/5. Pulses equal bilaterally 2+. Neurological: A&O x 3. CN II-XII intact, There are no obvious motor or sensory deficits. Coordination appears grossly intact. Speech is normal. Skin: Skin is warm and dry and no rashes or lesions are noted. Psychiatric: Cooperative, appropriate mood & affect, normal judgment. Limitations: no limitations Course Vital Signs 05/25/18 05/25/18 15:31 18:30 Temperature 98.2 F Pulse Rate 86 72 Respiratory 18 19 Rate Blood Pressure 140/83 122/78 O2 Sat by Pulse 99 98 Oximetry Medical Decision Making - Medical Decision Making Patient reexamined at this time shows no signs of distress she is resting comfortably. Patient's CT the abdomen and pelvis does show some mild inflammation around the jejunum. No sign of abscess or other infection. Patient has no elevated white count. No fever here in emergency room. Her urinalysis does show 6 white cells. Patient was given dose of Rocephin here in the emergency room. She'll be treated for a UTI. Advised follow-up with her urologist she see Dr. Brito in the past. Advised to return to emergency room if fever, increased worsening symptoms. Patient states understanding and is in agreement. - Lab Data Result diagrams: 05/25/18 15:50 05/25/18 15:50 Lab Results 05/25/18 05/25/18 05/25/18 Range/Units 15:50 15:50 15:50 WBC 8.7 (3.8-10.6) k/uL RBC 4.44 (3.80-5.40) m/uL Hgb 13.6 (11.4-16.0) gm/dL Hct 39.8 (34.0-46.0) % MCV 89.7 (80.0-100.0) fL MCH 30.5 (25.0-35.0) pg MCHC 34.0 (31.0-37.0) g/dL RDW 12.5 (11.5-15.5) % Plt Count 267 (150-450) k/uL Neutrophils % 56 % Lymphocytes % 34 % Monocytes % 5 % Eosinophils % 3 % Basophils % 0 % Neutrophils # 4.8 (1.3-7.7) k/uL Lymphocytes # 3.0 (1.0-4.8) k/uL Monocytes # 0.4 (0-1.0) k/uL Eosinophils # 0.3 (0-0.7) k/uL Basophils # 0.0 (0-0.2) k/uL Sodium 140 (137-145) mmol/L Potassium 4.3 (3.5-5.1) mmol/L Chloride 107 (98-107) mmol/L Carbon Dioxide 25 (22-30) mmol/L Anion Gap 8 mmol/L BUN 11 (7-17) mg/dL Creatinine 0.52 (0.52-1.04) mg/dL Est GFR (CKD-EPI)AfAm >90 (>60 ml/min/1.73 sqM) Est GFR (CKD-EPI)NonAf >90 (>60 ml/min/1.73 sqM) Glucose 101 H (74-99) mg/dL Calcium 9.0 (8.4-10.2) mg/dL Total Bilirubin 0.3 (0.2-1.3) mg/dL AST 49 H (14-36) U/L ALT 54 H (9-52) U/L Alkaline Phosphatase 93 (38-126) U/L Total Protein 6.8 (6.3-8.2) g/dL Albumin 3.9 (3.5-5.0) g/dL Amylase <30 L (30-110) U/L Lipase 79 (23-300) U/L Urine Color Urine Appearance (Clear) Urine pH (5.0-8.0) Ur Specific [place] (1.001-1.035) Urine Protein (Negative) Urine Glucose (UA) (Negative) Urine Ketones (Negative) Urine Blood (Negative) Urine Nitrite (Negative) Urine Bilirubin (Negative) Urine Urobilinogen (<2.0) mg/dL Ur Leukocyte Esterase (Negative) Urine RBC (0-5) /hpf Urine WBC (0-5) /hpf Ur Squamous Epith Cells (0-4) /hpf Urine Mucus (None) /hpf Urine HCG, Qual Not Detected (Not Detectd) 05/25/18 Range/Units 15:50 WBC (3.8-10.6) k/uL RBC (3.80-5.40) m/uL Hgb (11.4-16.0) gm/dL Hct (34.0-46.0) % MCV (80.0-100.0) fL MCH (25.0-35.0) pg MCHC (31.0-37.0) g/dL RDW (11.5-15.5) % Plt Count (150-450) k/uL Neutrophils % % Lymphocytes % % Monocytes % % Eosinophils % % Basophils % % Neutrophils # (1.3-7.7) k/uL Lymphocytes # (1.0-4.8) k/uL Monocytes # (0-1.0) k/uL Eosinophils # (0-0.7) k/uL Basophils # (0-0.2) k/uL Sodium (137-145) mmol/L Potassium (3.5-5.1) mmol/L Chloride (98-107) mmol/L Carbon Dioxide (22-30) mmol/L Anion Gap mmol/L BUN (7-17) mg/dL Creatinine (0.52-1.04) mg/dL Est GFR (CKD-EPI)AfAm (>60 ml/min/1.73 sqM) Est GFR (CKD-EPI)NonAf (>60 ml/min/1.73 sqM) Glucose (74-99) mg/dL Calcium (8.4-10.2) mg/dL Total Bilirubin (0.2-1.3) mg/dL AST (14-36) U/L ALT (9-52) U/L Alkaline Phosphatase (38-126) U/L Total Protein (6.3-8.2) g/dL Albumin (3.5-5.0) g/dL Amylase (30-110) U/L Lipase (23-300) U/L Urine Color Light Yellow Urine Appearance Clear (Clear) Urine pH 7.5 (5.0-8.0) Ur Specific [place] 1.014 (1.001-1.035) Urine Protein Negative (Negative) Urine Glucose (UA) Negative (Negative) Urine Ketones Negative (Negative) Urine Blood Negative (Negative) Urine Nitrite Negative (Negative) Urine Bilirubin Negative (Negative) Urine Urobilinogen <2.0 (<2.0) mg/dL Ur Leukocyte Esterase Trace H (Negative) Urine RBC 1 (0-5) /hpf Urine WBC 6 H (0-5) /hpf Ur Squamous Epith Cells 7 H (0-4) /hpf Urine Mucus Rare H (None) /hpf Urine HCG, Qual (Not Detectd) Disposition Clinical Impression: UTI (urinary tract infection) Disposition: HOME SELF-CARE Condition: Good Instructions: Urinary Tract Infection in Women (DC) Additional Instructions: Please use medication as discussed. Please follow-up with urology/family doctor in the next 2 days of symptoms have not improved. Please return to emergency room if the symptoms increase or worsen or for any other concerns. Prescriptions: Sulfamethox-Tmp 800-160Mg [Bactrim DS 800-160 mg] 1 tab PO Q12HR #20 tab Is patient prescribed a controlled substance at d/c from ED?: No Referrals: Dangelo Lennon Jr, [Primary Care Provider] - 1-2 days Time of Disposition: 18:46
[2018-05-25 16:07] LABS: Appearance,Urine Clear (Clear); Bilirubin,Urine Negative (Negative); Blood,Urine Negative (Negative); Color,Urine Light Yellow; Glucose,Urine (UA) Negative (Negative); Ketones,Urine Negative (Negative); Leukocyte Esterase,Urine Trace (Negative); Mucus,Urine Rare /hpf; Nitrite,Urine Negative (Negative); PH, Urine 7.5 (5.0-8.0); Protein,Urine Negative (Negative); RBC,Urine 1 /hpf (0-5); Specific Gravity,Urine 1.014 (1.001-1.035); Squamous Epithelial Cell,Urine 7 /hpf (0-4); Urobilinogen,Urine <2.0 mg/dL (<2.0); WBC,Urine 6 /hpf (0-5)
[2018-05-25 16:09] LABS: Basophils % (A) 0 %; Eosinophils # (A) 0.3 k/uL (0-0.7); Eosinophils % (A) 3 %; HCT 39.8 % (34.0-46.0); HGB 13.6 gm/dL (11.4-16.0); Lymphocytes % (A) 34 %; MCH 30.5 pg (25.0-35.0); MCV 89.7 fL (80.0-100.0); Mean Platelet Volume 6.8; Monocytes # (A) 0.4 k/uL (0-1.0); Monocytes % (A) 5 %; Neutrophils # (A) 4.8 k/uL (1.3-7.7); Neutrophils % (A) 56 %; Platelet Count 267 k/uL (150-450); RBC 4.44 m/uL (3.80-5.40); RDW 12.5 % (11.5-15.5); WBC 8.7 k/uL (3.8-10.6)
[2018-05-25 16:16] LABS: ALT 54 U/L (9-52); AST 49 U/L (14-36); Albumin 3.9 g/dL (3.5-5.0); Alkaline Phosphatase 93 U/L (38-126); Amylase <30 U/L (30-110); Anion Gap 8 mmol/L; Blood Urea Nitrogen 11 mg/dL (7-17); Carbon Dioxide 25 mmol/L (22-30); Chloride 107 mmol/L (98-107); Glucose 101 mg/dL (74-99); Lipase 79 U/L (23-300); Potassium 4.3 mmol/L (3.5-5.1); Sodium 140 mmol/L (137-145); Total Bilirubin 0.3 mg/dL (0.2-1.3); Total Protein 6.8 g/dL (6.3-8.2)
[2018-05-25] MEDS ORDERED: MORPHINE SULFATE 4 MG/ML SYRINGE IVP STA (18:28)
--- NOTE | 2018-05-25 18:28 | CT ---
EXAMINATION TYPE: CT abdomen pelvis w con DATE OF EXAM: 05/25/2018 COMPARISON: 12/26/2017 HISTORY: Left side abdominal pain, fever and nausea CT DLP: 1145.6 mGycm Automated exposure control for dose reduction was used. TECHNIQUE: Helical acquisition of images was performed from the lung bases through the pelvis. CONTRAST: Performed without Oral Contrast and with IV Contrast, patient injected with 100 mL of Isovue 300. FINDINGS: Lung bases are clear. There is no pleural effusion. Heart size is normal. Liver spleen pancreas appear normal. There are clips from cholecystectomy. The bile ducts are not dil ated. There is no adrenal mass. Kidneys show satisfactory contrast opacification. There is no hydrone phrosis. There is 1 cm cortical cyst anterior left kidney. There is no retroperitoneal adenopathy. Th ere is no ascites. Bladder distends smoothly. There is no inguinal hernia. Uterus is anteverted. Ther e is umbilical hernia that contains fat. There is no bowel obstruction. There are a few proximal smal l bowel loops with mild wall thickening. Appendix appears normal. Large bowel appears normal. Bony pelvis appears intact. Lumbar spine is intact. I see no bony destructive process. IMPRESSION: THERE IS MINIMAL WALL THICKENING OF THE JEJUNUM AND COULD RELATE TO MILD NONSPECIFIC INFLAMMATORY PRO CESS. THIS APPEARS NEW COMPARED TO LAST EXAM.
[2018-05-25 20:29] VITALS: BP 165/88; PULSE 65; RESP 18; TEMP 98.3
== END 2018-05-25 20:25 | disposition home or self-care (01) ==
LOC: EC 15:10
DX: N39.0 Urinary tract infection, site not specified (principal); Z90.49 Acquired absence of other specified parts of digestive tract; Z88.5 Allergy status to narcotic agent; Z88.8 Allergy status to other drugs, medicaments and biological substances
CPT/HCPCS: 99284; 96365; 96375; 96376; 96361; 36415; 80053; 82150; 83690; 85025; 81001; 81025; 74177; J2270; J2405; J0696; Q9967

== ENCOUNTER 2019-04-14 06:42 | Day surgery (SDC) | payer OTHER ==
[2019-04-07 13:38] VITALS: BMI 31.1
[~2019-04-14 06:42] MED LIST: HEPARIN SODIUM,PORCINE 5,000 UNIT/ML 1 ML VIAL SQ ONE; LACTATED RINGERS 1,000 ML IV SCH; LIDOCAINE 1% 20 ML VIAL (10MG/ML) FOR IV START INTRADERMA PRN; ONDANSETRON 4 MG/2 ML VIAL IVP ONE; Pre Op ABX Message 1 EACH MISC MISCELLANE ONE; fentaNYL (PF) 50 MCG/ML 2 ML AMP IV PRN
[2019-04-14 07:38] VITALS: TEMP 99.1
[2019-04-14] MEDS ORDERED: DEXAMETHASONE SOD PHOSPHATE 10 MG/ML 1 ML VIAL IV ONE (07:46)
[2019-04-14] MEDS ORDERED: MIDAZOLAM (PF) 2 MG/2 ML VIAL IVP ONE (07:51)
[2019-04-14] MEDS ORDERED: fentaNYL (PF) 50 MCG/ML 2 ML AMP ONE (07:52)
[2019-04-14] MEDS ORDERED: PROPOFOL 10 MG/ML 20 ML VIAL IV ONE (07:52)
[2019-04-14] MEDS ORDERED: ePHEDrine SULFATE/0.9% NACL/PF 50 MG/5 ML SYRINGE IV ONE (07:52)
[2019-04-14] MEDS ORDERED: MIDAZOLAM 2 MG/2 ML VIAL ONE (07:52)
--- NOTE | 2019-04-14 08:14 | P.GSHP ---
History of Present Illness H&P Date: 04/14/19 Chief Complaint: Sebaceous cyst right posterior neck This a 39-year-old female who's had a chronic sebaceous cyst of the right posterior neck. Patient presents today for excision. She's had a previous abscess in the area. 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 History of Any Multi-Drug Resistant Organisms: None Reported Past Surgical History: Cholecystectomy, Ear Surgery, Tubal Ligation Additional Past Surgical History / Comment(s): carpel tunnel, ectopic removal 09/28/16 Past Anesthesia/Blood Transfusion Reactions: Motion Sickness, Postoperative Nausea & Vomiting (PONV) Past Psychological History: Anxiety, Depression Smoking Status: Never smoker Past Alcohol Use History: Rare Past Drug Use History: Marijuana Additional Drug Use History / Comment(s): Hx of marijuana use for pain - Past Family History Father Family Medical History: No Reported History Mother Family Medical History: COPD Medications and Allergies Home Medications Medication Instructions Recorded Confirmed Type Albuterol Inhaler [Ventolin Hfa 1 - 2 puff INHALATION RT-Q6H PRN 04/07/19 04/14/19 History Inhaler] Bisoprolol Fumarate [Zebeta] 10 mg PO DAILY 04/07/19 04/07/19 History DULoxetine HCL [Cymbalta] 60 mg PO DAILY 04/07/19 04/07/19 History Hydrochlorothiazide [Hydrodiuril] 12.5 mg PO DAILY 04/07/19 04/14/19 History Lisinopril [Zestril] 10 mg PO DAILY 04/07/19 04/07/19 History Omeprazole [PriLOSEC] 20 mg PO AC-BRKFST 04/07/19 04/07/19 History Allergies Allergy/AdvReac Type Severity Reaction Status Date / Time diphenhydramine HCl AdvReac Unknown VOMITING, Verified 04/14/19 06:58 [From Benadryl] HIGH FEVER codeine AdvReac Itching Verified 04/14/19 06:58 Surgical - Exam Vital Signs Temp Pulse Resp BP Pulse Ox 99.1 F 54 L 20 110/47 97 04/14/19 07:00 04/14/19 07:00 04/14/19 07:00 04/14/19 07:00 04/14/19 07:00 - General well developed, well nourished, no distress - Eyes PERRL - ENT normal pinna - Neck no masses - Respiratory normal expansion - Cardiovascular Rhythm: regular - Abdomen Abdomen: soft - Integumentary 3 cm sebaceous cyst posterior right neck Assessment and Plan Assessment: Sebaceous cyst posterior neck. We'll perform excision.
[2019-04-14] MEDS ORDERED: LIDOCAINE 1%-EPI 1:100,000 20 ML VIAL SQ ONE ×2 (08:21)
[2019-04-14 08:44] VITALS: RESP 16
--- NOTE | 2019-04-14 08:53 | P.OP ---
Date of Procedure: 04/14/19 Preoperative Diagnosis: Sebaceous cyst right posterior neck Postoperative Diagnosis: Sebaceous cyst right posterior neck Procedure(s) Performed: Excision of sebaceous cyst right posterior neck Anesthesia: MAC Surgeon: Jerrell Jim Pathology: other (Sebaceous cyst) Condition: stable Disposition: PACU Description of Procedure: The patient's placed on operating table lateral position. Her right neck was prepped and draped usual fashion. Skin was anesthetized 1% local Xylocaine. Using a 15 blade elliptical skin incision was made around cyst. The cyst measured prostate 3 cm diameter. The Bovie was used for hemostasis. The subcutaneous tissue divided using left cautery. The skin was then closed interrupted 3-0 Monocryl suture. Dermabond was applied. Patient top she will was sent to recovery room stable condition.
[2019-04-14 08:58] VITALS: PULSE 58
[2019-04-14 09:12] VITALS: BP 108/67
== END 2019-04-14 09:28 | disposition home or self-care (01) ==
LOC: OR 06:42
PROVIDERS: ATTEND Surgery
DX: L72.3 Sebaceous cyst (principal); J45.909 Unspecified asthma, uncomplicated; K21.9 Gastro-esophageal reflux disease without esophagitis; I10 Essential (primary) hypertension; M19.90 Unspecified osteoarthritis, unspecified site; R42 Dizziness and giddiness; H91.91 Unspecified hearing loss, right ear; Z85.22 Personal history of malignant neoplasm of nasal cavities, middle ear, and accessory sinuses; K76.0 Fatty (change of) liver, not elsewhere classified; N32.81 Overactive bladder; Z90.49 Acquired absence of other specified parts of digestive tract; F41.9 Anxiety disorder, unspecified; F32.9 Major depressive disorder, single episode, unspecified; Z83.6 Family history of other diseases of the respiratory system; Z79.899 Other long term (current) drug therapy; Z88.5 Allergy status to narcotic agent; Z88.8 Allergy status to other drugs, medicaments and biological substances
CPT/HCPCS: 81025; 88304; 11423; J2250 ×2; J1644; J1100; J2405; J3010; J2704

== ENCOUNTER 2019-07-14 09:55 | Day surgery (SDC) | payer OTHER ==
[2019-07-13 09:02] VITALS: BMI 32.9
[~2019-07-14 09:55] MED LIST changes: -HEPARIN SODIUM,PORCINE 5,000 UNIT/ML 1 ML VIAL SQ ONE; -LIDOCAINE 1% 20 ML VIAL (10MG/ML) FOR IV START INTRADERMA PRN; -ONDANSETRON 4 MG/2 ML VIAL IVP ONE; -Pre Op ABX Message 1 EACH MISC MISCELLANE ONE; -fentaNYL (PF) 50 MCG/ML 2 ML AMP IV PRN
[2019-07-14 10:33] VITALS: RESP 16; TEMP 98.1
[2019-07-14] MEDS ORDERED: LIDOCAINE 1% 20 ML VIAL (10MG/ML) FOR IV START INTRADERMA ONE (10:33)
[2019-07-14] MEDS ORDERED: PROPOFOL 10 MG/ML 20 ML VIAL IV ONE (10:58)
[2019-07-14] MEDS ORDERED: LIDOCAINE 1% INJ 10MG/ML (20 ML MDV) ONE (10:58)
--- NOTE | 2019-07-14 11:22 | P.PCN ---
Date of Procedure: 07/14/19 Procedure(s) Performed: Brief history: Patient is a pleasant 39-year-old white female, scheduled for an elective upper endoscopy as well as colonoscopy as a part of evaluation of abdominal pain, change in bowel habits for the last several years duration. She has alternating diarrhea and constipation. Has diffuse abdominal pain. She has been on Prilosec 20 mg daily as well as Bentyl 10 mg 3 times daily and still remains symptomatic. Procedure performed: Esophagogastroduodenoscopy with biopsy Colonoscopy with biopsy Preoperative diagnosis: Abdominal pain Alternating diarrhea and constipation Anesthesia: MAC Procedure: After informed consent was obtained from the patient was brought into the en doscopy unit and IV sedation was administered by anesthesia under continuous monitoring. Initially upper endoscopy was done. The Olympus GF 160 video endoscope was inserted inserted into the mouth and esophagus intubated without any difficulty and was gradually advanced into the stomach and duodenum and carefully examined. The bulb and second part of the duodenum appeared normal. The scope was then withdrawn into the stomach adequately insufflated with air and upon careful examination the antrum and body, cardia and fundus appeared normal. The scope was then withdrawn into the esophagus. The GE junction was located at 40 cm to the incisors. It appeared regular with no erythema erosions or ulcerations. Rest of the esophagus appeared normal. Patient tolerated the procedure well. At this time the patient continued to remain sedation. Initial digital rectal examination was normal. Olympus CF 160 video colonoscope was then inserted into the rectum and gradually advanced to the cecum without any difficulty. Careful examination was performed as the scope was gradually being withdrawn. The prep was excellent. The cecum, ascending colon, transverse colon, descending colon, sigmoid colon and rectum appeared normal. Random biopsies were done from ascending and descending colon to rule out metastatic/collagenous colitis Retroflexion was performed in the rectum and no lesions were noted. Patient tolerated the procedure well. Impression: 1. Upper endoscopy revealed mild antral gastritis but no evidence of esophagitis or peptic ulcer disease 2. Colonoscopy was essentially within normal limits with no evidence of colitis or colorectal Recommendations: Findings of this examination were discussed with the patient as well as her family. She was advised to follow with the biopsy results. She'll be seen in office in 3-4 weeks.
[2019-07-14 11:50] VITALS: BP 113/71; PULSE 64
== END 2019-07-14 12:03 | disposition home or self-care (01) ==
LOC: ORWHC2ENDO 09:55
PROVIDERS: ATTEND Internal Medicine Gastroenterology
DX: K29.70 Gastritis, unspecified, without bleeding (principal); K59.00 Constipation, unspecified; R19.7 Diarrhea, unspecified; I10 Essential (primary) hypertension; Z98.51 Tubal ligation status; Z79.899 Other long term (current) drug therapy; Z88.5 Allergy status to narcotic agent; Z88.8 Allergy status to other drugs, medicaments and biological substances
CPT/HCPCS: 81025; 88305; 45380; 43239; J2001; J2704

== ENCOUNTER 2019-08-04 14:10 | Emergency (ER) | payer OTHER ==
[2019-08-04 14:42] VITALS: BP 113/61; PULSE 90; RESP 20; TEMP 98
--- NOTE | 2019-08-04 15:28 | XR ---
EXAMINATION TYPE: XR chest 2V DATE OF EXAM: 08/04/2019 COMPARISON: Prior chest x-ray 01/01/2017 HISTORY: Cough and congestion for 2 days TECHNIQUE: Frontal and lateral views of the chest are obtained. FINDINGS: There is no focal air space opacity, pleural effusion, or pneumothorax seen. The cardiac silhouette size is within normal limits. The osseous structures are intact. Surgical clips present in the upper abdomen. IMPRESSION: No acute cardiopulmonary process.
--- NOTE | 2019-08-04 15:42 | ED ---
URI HPI - General Chief Complaint: Upper Respiratory Infection Stated Complaint: Bronchitis Time Seen by Provider: 08/04/19 15:23 Source: patient Mode of arrival: ambulatory Limitations: no limitations - History of Present Illness Initial Comments: Patient is a 39-year-old female with history of asthma presenting to emergency Department with a chief complaint of a cough. Patient reports symptoms began yesterday with a productive cough with white sputum production. Patient does report some sinus congestion and a sore throat. Denies any facial pressure or otalgia. She states that typically her asthma is exacerbated with. Of severe coughing. She reports frequent bouts of bronchitis. Patient is not a smoker. Denies night sweats or chills. Denies any abdominal pain, chest pain. Does report some shortness of breath. Denies unilateral leg swelling, history of DVT, PE, exogenous estrogen use. - Related Data Home Medications Medication Instructions Recorded Confirmed Bisoprolol Fumarate [Zebeta] 10 mg PO QAM 04/07/19 07/13/19 DULoxetine HCL [Cymbalta] 60 mg PO QAM 04/07/19 07/13/19 Hydrochlorothiazide [Hydrodiuril] 12.5 mg PO DAILY 04/07/19 07/13/19 Lisinopril [Zestril] 10 mg PO QAM 04/07/19 07/13/19 Omeprazole [PriLOSEC] 20 mg PO AC-BRKFST 04/07/19 07/13/19 Dicyclomine HCl 20 mg PO TID 07/13/19 07/13/19 Ondansetron [Zofran] 4 mg PO Q8HR PRN 07/13/19 07/13/19 Previous Rx's Medication Instructions Recorded Albuterol Inhaler [Ventolin Hfa 1 - 2 puff INHALATION RT-Q6H PRN 08/04/19 Inhaler] #1 inhaler Benzonatate [Tessalon Perles] 100 mg PO TID PRN #15 capsule 08/04/19 Famotidine [Pepcid] 20 mg PO ONCE #5 tablet 08/04/19 predniSONE 50 mg PO DAILY #5 tab 08/04/19 Allergies Allergy/AdvReac Type Severity Reaction Status Date / Time diphenhydramine HCl AdvReac Unknown VOMITING, Verified 08/04/19 14:42 [From Benadryl] HIGH FEVER codeine AdvReac Itching Verified 08/04/19 14:42 Review of Systems ROS Statement: Those systems with pertinent positive or pertinent negative responses have been documented in the HPI. ROS Other: All systems not noted in ROS Statement are negative. 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 History of Any Multi-Drug Resistant Organisms: None Reported Past Surgical History: Cholecystectomy, Ear Surgery, Tubal Ligation Additional Past Surgical History / Comment(s): carpel tunnel, ectopic removal 09/28/16 Past Anesthesia/Blood Transfusion Reactions: Motion Sickness, Postoperative Nausea & Vomiting (PONV) Past Psychological History: Anxiety, Depression Smoking Status: Never smoker Past Alcohol Use History: None Reported Past Drug Use History: Marijuana - Past Family History Father Family Medical History: No Reported History Mother Family Medical History: COPD General Exam Limitations: no limitations General appearance: alert, in no apparent distress Head exam: Present: atraumatic, normocephalic, normal inspection Eye exam: Present: normal appearance, PERRL, EOMI Pupils: Present: normal accommodation ENT exam: Present: normal exam, normal oropharynx (Uvula midline. No tonsillar exudates, swelling or erythema.), mucous membranes moist, TM's normal bilaterally, normal external ear exam Neck exam: Present: normal inspection, full ROM. Absent: lymphadenopathy Respiratory exam: Present: normal lung sounds bilaterally. Absent: respiratory distress, wheezes, rhonchi, stridor, chest wall tenderness, accessory muscle use Cardiovascular Exam: Present: regular rate, normal rhythm, normal heart sounds Extremities exam: Present: normal inspection, full ROM Back exam: Present: normal inspection, full ROM Neurological exam: Present: alert, oriented X3 Psychiatric exam: Present: normal affect, normal mood Skin exam: Present: warm, dry, intact, normal color Course Vital Signs 08/04/19 14:38 Temperature 98.0 F Pulse Rate 90 Respiratory 20 Rate Blood Pressure 113/61 O2 Sat by Pulse 99 Oximetry Medical Decision Making - Medical Decision Making patient is a 39-year-old female with history of asthma presented emergency Department with a chief complaint of a cough. On auscultation lungs are clear. Rest of physical examination is unremarkable. Chest x-ray shows no signs of consolidation. Patient's vitals are stable. I suspect the patient has bronchitis. Patient will be discharged with an albuterol inhaler, course of steroids and Tessalon Perles. I suspect a bronchitis is triggering asthma-like symptoms. Patient was to follow primary care. Strict return parameters were thoroughly discussed with patient was understanding and agreeable. Case discussed with physician. - Lab Data Lab Results 08/04/19 Range/Units 14:41 Influenza Type A RNA Not Detected (Not Detectd) Influenza Type B (PCR) Not Detected (Not Detectd) Disposition Clinical Impression: Bronchitis Disposition: HOME SELF-CARE Condition: Stable Instructions (If sedation given, give patient instructions): Acute Bronchitis (ED) Additional Instructions: Please follow with primary care. Please take prescribed medication as directed. Please return to emergency department if symptoms worsen. Prescriptions: Famotidine [Pepcid] 20 mg PO ONCE #5 tablet predniSONE 50 mg PO DAILY #5 tab Benzonatate [Tessalon Perles] 100 mg PO TID PRN #15 capsule PRN Reason: Cough Albuterol Inhaler [Ventolin Hfa Inhaler] 1 - 2 puff INHALATION RT-Q6H PRN #1 inhaler PRN Reason: Shortness Of Breath Is patient prescribed a controlled substance at d/c from ED?: No Referrals: Dangelo Lennon Jr, [Primary Care Provider] - 1-2 days Time of Disposition: 15:42
== END 2019-08-04 15:48 | disposition home or self-care (01) ==
LOC: EC 14:10
DX: J45.909 Unspecified asthma, uncomplicated (principal); I10 Essential (primary) hypertension; K21.9 Gastro-esophageal reflux disease without esophagitis; F41.9 Anxiety disorder, unspecified; F32.9 Major depressive disorder, single episode, unspecified; Z83.6 Family history of other diseases of the respiratory system; Z79.899 Other long term (current) drug therapy; Z88.8 Allergy status to other drugs, medicaments and biological substances; Z88.5 Allergy status to narcotic agent
CPT/HCPCS: 71046; 87502; 99283

== ENCOUNTER → 2022-06-17 | Outpatient (CLI) | payer OTHER ==
--- NOTE | 2022-06-17 15:55 | US ---
EXAMINATION TYPE: US pelvis complete transvag DATE OF EXAM: 06/17/2022 COMPARISON: CT CLINICAL HISTORY: D25.9 LEIOMYOMA OF UTERUS, UNSPECIFIED. Pt states abnormal vaginal bleeding entire month of March, difficulty urinating TECHNIQUE: Transvaginal (TV) and Transabdominal (TA) . Transabdominal sonographic images of the pel vis were acquired. Transvaginal sonographic images were medically necessary to better assess the fol lowing anatomy: TV ordered per physician Date of LMP: March 2022 EXAM MEASUREMENTS: Uterus: 13.9 x 5.1 x 7.3 cm Endometrial Stripe: 1.1 cm Right Ovary: 2.6 x 1.9 x 2.8 cm 1. Uterus: Anteverted 1.5 cm Nabothian cyst in cervix/ Large in size, probable fibroids (2) measur ed 1)- right uterine body= 4.2 x 4.2 x 4.1 cm 2)- left uterine fundus= 2.5 x 2.2 x 2.0 cm 2. Endometrium: wnl 3. Right Ovary: wnl 4. Left Ovary: Obscured by overlying bowel gas, and enlarged uterus 5. Bilateral Adnexa: wnl 6. Posterior cul-de-sac: wnl IMPRESSION: 1. Uterine fibroids.
== END | disposition home or self-care (01) ==
LOC: RADUSWWP 15:17
PROVIDERS: ATTEND Obstetrics & Gynecology
DX: D25.9 Leiomyoma of uterus, unspecified (principal)
CPT/HCPCS: 76830; 76856

== ENCOUNTER 2024-02-08 15:21 | Emergency (ER) | payer BC, OTHER ==
[2024-02-08 15:30] VITALS: RESP 18
--- NOTE | 2024-02-08 16:13 | ED ---
General Adult HPI - General Chief complaint: Abdominal Pain Stated complaint: L side Pain/Back Time Seen by Provider: 02/08/24 15:34 Source: patient, RN notes reviewed Mode of arrival: ambulatory Limitations: no limitations - History of Present Illness Initial comments: 43-year-old female presents to the emergency department for evaluation. Patient states that this pain in her abdomen started 3 to 4 days ago. She states that she has never had this in the past. She does note that today she developed some left-sided flank pain. Patient reports that this is consistent with prior kidney infections. She admits to chills and nausea today. Prior abdominal surgeries include hysterectomy, cholecystectomy. - Related Data Home Medications Medication Instructions Recorded Confirmed Omeprazole [PriLOSEC] 20 mg PO DAILY 04/07/19 02/08/24 Amitriptyline HCl [Elavil] 100 mg PO HS 02/08/24 02/08/24 Atorvastatin [Lipitor] 10 mg PO DAILY 02/08/24 02/08/24 Celecoxib [CeleBREX] 100 mg PO BID 02/08/24 02/08/24 Cyclobenzaprine [Flexeril] 10 mg PO HS 02/08/24 02/08/24 Dulaglutide [Trulicity] 3 mg SQ Q7D 02/08/24 02/08/24 Levothyroxine Sodium [Synthroid] 50 mcg PO DAILY 02/08/24 02/08/24 Vortioxetine Hydrobromide 10 mg PO DAILY 02/08/24 02/08/24 [Trintellix] lisinopriL [Zestril] 5 mg PO DAILY 02/08/24 02/08/24 Allergies Allergy/AdvReac Type Severity Reaction Status Date / Time diphenhydramine HCl AdvReac Unknown VOMITING, Verified 02/08/24 17:40 [From Benadryl] HIGH FEVER codeine AdvReac Itching Verified 02/08/24 17:40 Review of Systems ROS Statement: Those systems with pertinent positive or pertinent negative responses have been documented in the HPI. ROS Other: All systems not noted in ROS Statement are negative. 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 History of Any Multi-Drug Resistant Organisms: None Reported Past Surgical History: Cholecystectomy, Ear Surgery, Tubal Ligation Additional Past Surgical History / Comment(s): carpel tunnel, ectopic removal 09/28/16 Past Anesthesia/Blood Transfusion Reactions: Motion Sickness, Postoperative Nausea & Vomiting (PONV) Past Psychological History: Anxiety, Depression Smoking Status: Never smoker Past Alcohol Use History: None Reported Past Drug Use History: Marijuana - Past Family History Father Family Medical History: No Reported History Mother Family Medical History: COPD General Exam Limitations: no limitations General appearance: alert, in no apparent distress Head exam: Present: atraumatic, normocephalic, normal inspection Eye exam: Present: normal appearance, PERRL, EOMI. Absent: scleral icterus, conjunctival injection, periorbital swelling ENT exam: Present: normal exam, mucous membranes moist Neck exam: Present: normal inspection. Absent: tenderness, meningismus, lymph adenopathy Respiratory exam: Present: normal lung sounds bilaterally. Absent: respiratory distress, wheezes, rales, rhonchi, stridor Cardiovascular Exam: Present: regular rate, normal rhythm, normal heart sounds. Absent: systolic murmur, diastolic murmur, rubs, gallop, clicks GI/Abdominal exam: Present: soft, tenderness (LLQ abd pain), normal bowel sounds. Absent: distended, guarding, rebound, rigid Extremities exam: Present: normal inspection, full ROM, normal capillary refill. Absent: tenderness, pedal edema, joint swelling, calf tenderness Back exam: Present: CVA tenderness (L). Absent: CVA tenderness (R) Neurological exam: Present: alert, oriented X3 Psychiatric exam: Present: normal affect, normal mood Skin exam: Present: warm, dry, intact, normal color. Absent: rash Course Vital Signs 02/08/24 02/08/24 02/08/24 15:28 18:07 21:03 Temperature 98 F Pulse Rate 73 68 65 Respiratory 18 18 18 Rate Blood Pressure 137/83 111/68 137/88 O2 Sat by Pulse 99 98 100 Oximetry 02/08/24 21:52 Temperature 98.1 F Pulse Rate 60 Respiratory 18 Rate Blood Pressure 136/65 O2 Sat by Pulse 98 Oximetry Medical Decision Making - Medical Decision Making Was pt. sent in by a medical professional or institution (DOROTA Marrufo, INCOME AUDITOR, urgent care, hospital, or senior living...) When possible be specific @ -No Did you speak to anyone other than the patient for history (EMS, parent, family, police, friend...)? What history was obtained from this source @ -No Did you review nursing and triage notes (agree or disagree)? Why? @ -I reviewed and agree with nursing and triage notes Were old charts reviewed (outside hosp., previous admission, EMS record, old EKG, old radiological studies, urgent care reports/EKG's, senior living records)? Report findings @ -No old charts were reviewed Differential Diagnosis (chest pain, altered mental status, abdominal pain women, abdominal pain men, vaginal bleeding, weakness, fever, dyspnea, syncope, headache, dizziness, GI bleed, back pain, seizure, CVA, palpatations, mental health, musculoskeletal)? @ -Differential Abdominal Pain Women: Appendicitis, Cholecystitis, diverticulosis, ischemic bowel, pancreatitis, hepatitis, UTI, gastroenteritis, AAA, incarcerated hernia, bowel obstruction, constipation, inflammatory bowel, hepatitis, peptic ulcer disease, splenic infarction, perforated viscus, vulvitis, ovarian torsion, PID, kidney stone, placenta abruption, this is not meant to be an all-inclusive list EKG interpreted by me (3pts min.). @ -none X-rays interpreted by me (1pt min.). @ -None done CT interpreted by me (1pt min.). @ -CT abdomen pelvis shows potential mass in the left adnexa U/S interpreted by me (1pt. min.). @ -Ultrasound of the pelvis shows heterogenous left ovarian mass which could represent a hemorrhagic cyst What testing was considered but not performed or refused? (CT, X-rays, U/S, labs)? Why? @ -None What meds were considered but not given or refused? Why? @ -None Did you discuss the management of the patient with other professionals (professionals i.e. DOROTA Marrufo, INCOME AUDITOR, lab, RT, psych nurse, psychologist social, production control pegboard clerk, teacher, activities officer, adult protective caseworker)? Give summary @ -No Was smoking cessation discussed for >3mins.? @ -No Was critical care preformed (if so, how long)? @ -No Were there social determinants of health that impacted care today? How? (Homelessness, low income, unemployed, alcoholism, drug addiction, transportation, low edu. Level, literacy, decrease access to med. care, assisted, rehab)? @ -No Was there de-escalation of care discussed even if they declined (Discuss DNR or withdrawal of care, Hospice)? DNR status @ -No What co-morbidities impacted this encounter? (DM, HTN, Smoking, COPD, CAD, Cancer, CVA, ARF, Chemo, Hep., AIDS, mental health diagnosis, sleep apnea, morbid obesity)? @ -None Was patient admitted / discharged? Hospital course, mention meds given and route, prescriptions, significant lab abnormalities, going to OR and other per tinent info. @ -Discharge. Patient presented to the emergency department for evaluation of left lower abdominal pain and left flank pain. Symptoms started 2 to 3 days ago. Laboratory studies obtained.CBC, CMP unremarkable; UA shows no significant evidence for infectious process. CT abdomen pelvis was obtained which shows potential adnexal mass. Ultrasound was obtained because of this which shows a heterogenous mass in the left ovary possibly representing a hemorrhagic cyst. Discussed findings with patient, pain was controlled while in the ED. Advised strict follow-up with her supervisor electron tube processing. Patient will be discharged home. Patient understanding and agreeable with plan. Patient stable at time of discharge. Case discussed with Dr. Schuler Undiagnosed new problem with uncertain prognosis? @ -No Drug Therapy requiring intensive monitoring for toxicity (Heparin, Nitro, Insulin, Cardizem)? @ -No Were any procedures done? @ -No Diagnosis/symptom? @ -Hemorrhagic cyst Acute, or Chronic, or Acute on Chronic? @ -Acute Uncomplicated (without systemic symptoms) or Complicated (systemic symptoms)? @ -uncomplicated Side effects of treatment? @ -No Exacerbation, Progression, or Severe Exacerbation? @ -No Poses a threat to life or bodily function? How? (Chest pain, USA, CT, pneumonia, PE, COPD, DKA, ARF, appy, cholecystitis, CVA, Diverticulitis, Homicidal, Suicidal, threat to staff... and all critical care pts) @ -No - Lab Data Result diagrams: 02/08/24 16:11 02/08/24 16:11 Lab Results 02/08/24 02/08/2402/07/24 Range/Units 16:11 16:11 16:11 WBC 10.4 (3.8-10.6) k/uL RBC 4.47 (3.80-5.40) m/uL Hgb 13.5 (11.4-16.0) gm/dL Hct 41.8 (34.0-46.0) % MCV 93.4 (80.0-100.0) fL MCH 30.2 (25.0-35.0) pg MCHC 32.3 (31.0-37.0) g/dL RDW 12.3 (11.5-15.5) % Plt Count 332 (150-450) k/uL MPV 7.6 Neutrophils % 53 % Lymphocytes % 34 % Monocytes % 5 % Eosinophils % 6 % Basophils % 1 % Neutrophils # 5.4 (1.3-7.7) k/uL Lymphocytes # 3.5 (1.0-4.8) k/uL Monocytes # 0.5 (0-1.0) k/uL Eosinophils # 0.6 (0-0.7) k/uL Basophils # 0.1 (0-0.2) k/uL Sodium 140 (137-145) mmol/L Potassium 3.8 (3.5-5.1) mmol/L Chloride 109 H (98-107) mmol/L Carbon Dioxide 23 (22-30) mmol/L Anion Gap 8 mmol/L BUN 15 (7-17) mg/dL Creatinine 0.54 (0.52-1.04) mg/dL Est GFR (CKD-EPI)AfAm >90 (>60 ml/min/1.73 sqM) Est GFR (CKD-EPI)NonAf >90 (>60 ml/min/1.73 sqM) Glucose 86 (74-99) mg/dL Calcium 9.6 (8.4-10.2) mg/dL Total Bilirubin 0.4 (0.2-1.3) mg/dL AST 20 (14-36) U/L ALT 15 (4-34) U/L Alkaline Phosphatase 91 (38-126) U/L Total Protein 6.9 (6.3-8.2) g/dL Albumin 4.2 (3.5-5.0) g/dL Amylase 55 (30-110) U/L Lipase 149 (23-300) U/L Urine Color Light Yellow Urine Appearance Cloudy H (Clear) Urine pH 5.5 (5.0-8.0) Ur Specific [place] 1.030 (1.001-1.035) Urine Protein Negative (Negative) Urine Glucose (UA) Negative (Negative) Urine Ketones Negative (Negative) Urine Blood Negative (Negative) Urine Nitrite Negative (Negative) Urine Bilirubin Negative (Negative) Urine Urobilinogen <2.0 (<2.0) mg/dL Ur Leukocyte Esterase Negative (Negative) Urine RBC <1 (0-5) /hpf Urine WBC 2 (0-5) /hpf Ur Squamous Epith Cells 6 H (0-4) /hpf Calcium Oxalate Crystal Occasional H (None) /hpf Urine Mucus Occasional H (None) /hpf Urine HCG, Qual (Not Detectd) 02/08/24 Range/Units 16:11 WBC (3.8-10.6) k/uL RBC (3.80-5.40) m/uL Hgb (11.4-16.0) gm/dL Hct (34.0-46.0) % MCV (80.0-100.0) fL MCH (25.0-35.0) pg MCHC (31.0-37.0) g/dL RDW (11.5-15.5) % Plt Count (150-450) k/uL MPV Neutrophils % % Lymphocytes % % Monocytes % % Eosinophils % % Basophils % % Neutrophils # (1.3-7.7) k/uL Lymphocytes # (1.0-4.8) k/uL Monocytes # (0-1.0) k/uL Eosinophils # (0-0.7) k/uL Basophils # (0-0.2) k/uL Sodium (137-145) mmol/L Potassium (3.5-5.1) mmol/L Chloride (98-107) mmol/L Carbon Dioxide (22-30) mmol/L Anion Gap mmol/L BUN (7-17) mg/dL Creatinine (0.52-1.04) mg/dL Est GFR (CKD-EPI)AfAm (>60 ml/min/1.73 sqM) Est GFR (CKD-EPI)NonAf (>60 ml/min/1.73 sqM) Glucose (74-99) mg/dL Calcium (8.4-10.2) mg/dL Total Bilirubin (0.2-1.3) mg/dL AST (14-36) U/L ALT (4-34) U/L Alkaline Phosphatase (38-126) U/L Total Protein (6.3-8.2) g/dL Albumin (3.5-5.0) g/dL Amylase (30-110) U/L Lipase (23-300) U/L Urine Color Urine Appearance (Clear) Urine pH (5.0-8.0) Ur Specific [place] (1.001-1.035) Urine Protein (Negative) Urine Glucose (UA) (Negative) Urine Ketones (Negative) Urine Blood (Negative) Urine Nitrite (Negative) Urine Bilirubin (Negative) Urine Urobilinogen (<2.0) mg/dL Ur Leukocyte Esterase (Negative) Urine RBC (0-5) /hpf Urine WBC (0-5) /hpf Ur Squamous Epith Cells (0-4) /hpf Calcium Oxalate Crystal (None) /hpf Urine Mucus (None) /hpf Urine HCG, Qual Not Detected (Not Detectd) Disposition Clinical Impression: Hemorrhagic cyst of left ovary Disposition: HOME SELF-CARE Condition: Stable Instructions (If sedation given, give patient instructions): Ovarian Cyst (ED) Additional Instructions: Please follow up with your supervisor electron tube processing. Return to the emergency department for new or worsening symptoms. Is patient prescribed a controlled substance at d/c from ED?: No Referrals: Janae Marina DO [Primary Care Provider] - 1-2 days
[2024-02-08] MEDS: SODIUM CHLORIDE 0.9% 1,000 ML IV STA (16:17)
[2024-02-08] MEDS: HYDROmorphone 0.5 MG/0.5 ML SYRINGE IVP STA ×3 (16:18→21:42)
[2024-02-08 17:04] LABS: Basophils # (A) 0.1 k/uL (0-0.2); Basophils % (A) 1 %; Eosinophils # (A) 0.6 k/uL (0-0.7); Eosinophils % (A) 6 %; HCT 41.8 % (34.0-46.0); HGB 13.5 gm/dL (11.4-16.0); Lymphocytes # (A) 3.5 k/uL (1.0-4.8); Lymphocytes % (A) 34 %; MCH 30.2 pg (25.0-35.0); MCHC 32.3 g/dL (31.0-37.0); MCV 93.4 fL (80.0-100.0); Mean Platelet Volume 7.6; Monocytes # (A) 0.5 k/uL (0-1.0); Monocytes % (A) 5 %; Neutrophils # (A) 5.4 k/uL (1.3-7.7); Neutrophils % (A) 53 %; Platelet Count 332 k/uL (150-450); RBC 4.47 m/uL (3.80-5.40); RDW 12.3 % (11.5-15.5); WBC 10.4 k/uL (3.8-10.6)
[2024-02-08 17:08] LABS: ALT 15 U/L (4-34); AST 20 U/L (14-36); African American GFR (CKD) >90 (>60 ml/min/1.73 sqM); Albumin 4.2 g/dL (3.5-5.0); Alkaline Phosphatase 91 U/L (38-126); Amylase 55 U/L (30-110); Anion Gap 8 mmol/L; Blood Urea Nitrogen 15 mg/dL (7-17); Calcium 9.6 mg/dL (8.4-10.2); Carbon Dioxide 23 mmol/L (22-30); Chloride 109 mmol/L (98-107); Glucose 86 mg/dL (74-99); Lipase 149 U/L (23-300); Non-African American GFR(CKD) >90 (>60 ml/min/1.73 sqM); Potassium 3.8 mmol/L (3.5-5.1); Sodium 140 mmol/L (137-145); Total Bilirubin 0.4 mg/dL (0.2-1.3); Total Protein 6.9 g/dL (6.3-8.2)
[2024-02-08 17:51] LABS: Appearance,Urine Cloudy (Clear); Bilirubin,Urine Negative (Negative); Blood,Urine Negative (Negative); Calcium Oxalate Crystals,Urine Occasional /hpf; Color,Urine Light Yellow; Glucose,Urine (UA) Negative (Negative); Ketones,Urine Negative (Negative); Leukocyte Esterase,Urine Negative (Negative); Mucus,Urine Occasional /hpf; Nitrite,Urine Negative (Negative); PH, Urine 5.5 (5.0-8.0); Protein,Urine Negative (Negative); RBC,Urine <1 /hpf (0-5); Squamous Epithelial Cell,Urine 6 /hpf (0-4); Urobilinogen,Urine <2.0 mg/dL (<2.0); WBC,Urine 2 /hpf (0-5)
[2024-02-08] MEDS: KETOROLAC 15 MG/ML 1 ML VIAL IVP STA (18:09)
--- NOTE | 2024-02-08 19:30 | CT ---
EXAMINATION TYPE: CT abdomen pelvis wo con DATE OF EXAM: 02/08/2024 HISTORY: left flank pain CT DLP: 550.9 mGycm. Automated Exposure Control for Dose Reduction was Utilized. TECHNIQUE: CT scan of the abdomen and pelvis is performed without oral or IV contrast. COMPARISON: 05/25/2018 FINDINGS: The lungs are clear. There is surgical absence of the gallbladder. There is no biliary ductal dilatation. There is no organomegaly of the liver, pancreas, spleen or adrenal glands. There are no renal calcifications or hydronephrosis. The caliber of the abdominal aorta is normal and there is no retroperitoneal adenopathy or hemorrhage . The bowel loops are normal in caliber is no evidence of obstruction. No inflammatory changes are iden tified in the mesentery and there is no free intraperitoneal air or fluid. There is a 4.6 cm mass of slightly heterogeneous density in the left pelvis which could represent an adnexal mass. Further evaluation is warranted on a nonemergent basis with pelvic ultrasound. Neoplasm cannot be excluded. There are surgical absence of uterus. The osseous structures and soft tissues are unremarkable. IMPRESSION: 4.6 cm left pelvic mass possibly an adnexal mass and neoplasm is not excluded. Further evaluation is warranted with pelvic ultrasound on a nonemergent basis. No other acute changes within the abdomen or pelvis
--- NOTE | 2024-02-08 20:58 | US ---
EXAMINATION TYPE: US transvaginal DATE OF EXAM: 02/08/2024 COMPARISON: CT 02/08/2024 CLINICAL INDICATION: Female, 43 years old with history of pelvic pain, prior hysterectomy, has lt ova ry; Hx of hysterectomy and right oophorectomy. Patient states pelvic pain for 4-5 days. TECHNIQUE: Transvaginal (TV). Transvaginal sonographic images were medically necessary to better a ssess the following anatomy: Left ovary Date of LMP: Patient no longer has periods EXAM MEASUREMENTS: Uterus: Surgically absent cm Endometrial Stripe: Surgically absent cm Right Ovary: Surgically absent cm Left Ovary: 4.9 x 4.6 x 4.2 cm 1. Uterus: Surgically absent 2. Endometrium: Surgically absent 3. Right Ovary: Surgically absent 4. Left Ovary: There is a 3.9 x 3.4 x 3.1cm area of mixed echogenicity seen within the left ovary. Spectral, color and waveform doppler imaging shows good arterial and venous flow within the left ov haritha; there is no evidence for ovarian torsion. 5. Bilateral Adnexa: Obscured by overlying bowel gas 6. Posterior cul-de-sac: wnl IMPRESSION: 1. Surgical absence of the uterus and right ovary. 2. Mildly prominent left ovary and heterogeneous left ovarian mass which could represent hemorrhagic cyst. Short-term follow-up ultrasound in 4-6 weeks or MRI of the pelvis is recommended for further ev aluation.
[2024-02-08 21:53] VITALS: BP 136/65; PULSE 60; TEMP 98.1
== END 2024-02-08 21:54 | disposition home or self-care (01) ==
LOC: EC 15:21
DX: N83.202 Unspecified ovarian cyst, left side (principal); Z88.5 Allergy status to narcotic agent; Z88.8 Allergy status to other drugs, medicaments and biological substances; Z90.49 Acquired absence of other specified parts of digestive tract
CPT/HCPCS: 36415; 80053; 82150; 83690; 85025; 81001; 81025; 93976; 76830; 74176; 99284; 96374; 96375; 96376 ×2; 96361 ×2; J1885; J1170